=== PATIENT | female | born 1940 | race African-American/Black ===

== ENCOUNTER 2019-11-18 06:43 | Inpatient (IN) | payer MEDICARE, OTHER ==
[~2019-11-18] VITALS: Ht 160 cm; Wt 66.2 kg
[2019-11-18 06:30] VITALS: BP 171/82
[~2019-11-18 06:43] MED LIST: CARV25TA2 PO; CLON1PAT TD; CLON1PAT6 TD; DILT120C99 PO; FAMO20TA5 PO; FOLI0.8T3 PO; FURO20TA3 PO; HYDR-2761 PO; HYDR100T24 PO; INSU100C4 SQ; INSU100I13 SQ; INSU100V6 SQ; LABE200T4 PO; LOSA100T14 PO; METO5TAB55 PO; NIFE30TA2 PO; PANT40TA6 PO; PENT400T7 PO; SPIR25TA5 PO; TIMO5DRO31 EACHEYE
[2019-11-18] MEDS ORDERED: INSULIN REGULAR 100 UNIT/ML 3ML VIAL. SQ SCH (11:30)
[2019-11-18 11:59] VITALS: BP 168/77
[2019-11-18] MEDS: INSULIN LISPRO 300 UNITS/3 ML VIAL. SQ SCH ×2 (12:00→18:13)
--- NOTE | 2019-11-18 12:19 | HP ---
ADMIT DATE: 11/18/2019 HISTORY OF PRESENT ILLNESS: The patient is a 79-year-old female patient who presented to the Emergency Room of [facility] with a complaint of pain in her right neck and arm. She described it as an electrical shock, burning pain and runs down her right arm. The arm numbness started yesterday, but has been more persistent this morning. The patient awoke from sleep with increased symptom of weakness. She has had a history of TIAs before, however, the patient did not have any problem with her right lower extremity. She was able to walk, she was able to talk and eat and drink without difficulty. She was evaluated in the Emergency Room of [facility]. Her lab work was unremarkable. She has had multiple imaging modalities including CT scan of the head and cervical spine without contrast. The CT scan of the head showed mild generalized cerebral and cerebellar volume loss, mild nonspecific periventricular hypoattenuation most commonly seen with chronic small vessel ischemic disease, no intra or extraaxial mass or fluid collection, no acute hemorrhage. The ventricles are normal in size, shape and morphology. The davalos white matter junction is normal. The basilar cisterns are patent. The visualized paranasal sinuses are normal. The visualized portion of the orbits and globes are normal. The mastoid air cells are clear. No aggressive osseous lesions or fracture. Her cervical spine CT scan showed moderate multilevel degenerative disk disease, disk space height loss, multilevel spinal canal stenosis secondary to disk protrusions and marginal osteophytes, worse at ____ C5, C4 where a right paracentral protrusion resulting at least moderate spinal canal stenosis multilevel, and moderate neural foraminal narrowing secondary to uncovertebral arthrosis. She has multilevel mild facet arthrosis, thyroid gland is normal, no cervical lymphadenopathy, bilateral carotid atherosclerosis. The visualized airway digestive tract is normal. The visualized portion of the lungs are clear. The patient's chest x-ray showed normal lung volumes, no pulmonary masses or consolidation. The tracheobronchial tree and hilar structures are normal, no pleural effusion or pneumothorax. The cardiomediastinal silhouette is normal. The great vessels of thorax are normal. X-ray of the abdomen showed nonobstructive bowel gas pattern, no free air, evidence of cholecystectomy and moderate colonic stool burden. The patient was transferred to [facility] for further evaluation and to consult the neurologist, neurosurgeon as well as hoop machine operator as she is on peritoneal dialysis 5 out of 7 days. PAST MEDICAL HISTORY: Significant for longstanding type 2 diabetes with multiple complications, hypertension, hyperlipidemia, end-stage renal disease, on peritoneal dialysis. She has transient ischemic attacks and sarcoidosis. PAST SURGICAL HISTORY: Significant for bilateral cataract extraction. She is also known to have senile macular degeneration. She has had cholecystectomy, right shoulder rotator cuff repair and left middle finger fracture, status post open reduction and internal fixation. She did have also total abdominal hysterectomy and bilateral salpingo-oophorectomy. ALLERGIES: She has no known drug allergies. FAMILY HISTORY: She has 2 brothers and 1 sister, all younger and . Her older brother of hypertension, end-stage renal disease. Her sister of what seems to be status epilepticus and her baby brother at age of 22 because of obscure cancer. Her mother at the age of 25 and father at the age of 23 and both had sarcoidosis. SOCIAL HISTORY: She is and has 7 daughters and 3 sons. She does not smoke, drink alcohol or use recreational drugs. MEDICATIONS: She is currently on the following medications: She is on pentoxifylline 400 mg 3 times a day, clonidine TTS 2 patch applied transdermally once a week, hydralazine 100 mg 3 times a day, nifedipine 30 mg once a day, losartan potassium 100 mg at bedtime, hydrocodone/APAP 1 tablet every 4 hours, furosemide 20 mg daily, timolol maleate 1 drop to both eyes twice a day, Protonix 40 mg daily. She is on Lantus insulin 8 units at bedtime. She is on Humalog insulin 6 units 3 times a day before meals. She is on Nephro-Cash 1 tablet once a day. PHYSICAL EXAMINATION: GENERAL: On arrival to the Emergency Room of [facility], she looked well and was clearly in no apparent respiratory distress, pale, but no jaundice, cyanosis or thyromegaly. No jugular venous distension. No lower limb edema. VITAL SIGNS: Her heart rate was 111, blood pressure was 170/80, temperature 98.1, respiratory rate 26 and oxygen saturation was 97%. HEAD, EYES, EARS, NOSE AND THROAT: Normocephalic, atraumatic. NECK: Supple. HEART: Showed normal first and second heart sounds. No gallop or murmur. CHEST: Clear to auscultation. No crepitation or rhonchi. ABDOMEN: Distended, soft, nontender. NEUROLOGIC: She was alert, oriented x 3, moves all extremities on request. Reports burning and numbness like feeling and pain in her right arm. No focal deficit noted. The reflexes are all symmetrical. Phosphoric Acid Operator are equal. No drift, but does complain that her right arm seems to be weaker. LABORATORY DATA: Her EKG showed that she was in sinus tachycardia with a heart rate of 112 beats per minute. There is some bimodal P waves and some nonspecific changes, but no finding of acute STEMI. Her chest x-ray was unremarkable. The CT scan of the head was unremarkable with no acute intracranial process. CT scan of the cervical spine showed that there is multilevel spinal canal stenosis secondary to disk protrusion and marginal osteophytes, worse at ____ C5, C6 where a right paracentral protrusion resulting in at least moderate spinal canal stenosis. Her lab work showed a white cell count of 7800, hemoglobin 12, hematocrit 36, MCV 90 and platelet count 348,000. Her chemistry showed serum sodium of 132, potassium 4.1, chloride 98, bicarbonate 21, anion gap of 13, BUN 36, creatinine 6.4, estimated GFR was 7.6, glucose was 197, calcium was 8.4, magnesium was 1.7. Total bilirubin, AST, ALT, alkaline phosphatase were normal. CK was 97. First set troponin was 0.028. Total protein was 7.1, albumin 2.3 and lipase was 78. Her blood gases showed a pH of 7.46, pCO2 of 26, pO2 of 102, bicarbonate was 19 and oxygen saturation was 98% on FiO2 of 21%. Her prothrombin time, INR and aPTT are normal. D-dimer was slightly elevated to 1.61. Her urinalysis was essentially unremarkable. ASSESSMENT AND PLAN: In summary, this is a 79-year-old female patient who presented with right arm pain that she describes as burning sensation. She also describes generalized weakness of the right arm, although she denied any weakness of the right lower extremity. She has no aphasia or dysphagia. CT scan of the cervical spine showed perhaps right-sided C4-C5 ____ neural foraminal stenosis and perhaps right-sided radiculopathy. My plan is to consult the neurologist. She probably will require an MRI to explore this area further, might eventually require a neurosurgical consult. Meanwhile, we will reconcile all her medication and consult Dr. Price to continue her peritoneal dialysis. LADONNA REZA MD DR: ROBERT/andrew JOB#: [id number] / [id number]
[2019-11-18] MEDS: PENTOXIFYLLINE ER 400 MG TABLET.ER. PO SCH ×3 (12:42→20:53)
[2019-11-18] MEDS: FOLIC/VIT B COMP W-C (RENAL) TABLET. PO SCH (12:42)
[2019-11-18] MEDS: amLODIPine BESYLATE 5 MG TABLET PO SCH (12:43)
[2019-11-18] MEDS: TIMOLOL 0.5% OPHTH SOLUTION 5ML BOTTLE. OU SCH ×2 (12:46→21:00)
--- NOTE | 2019-11-18 13:05 | PDOC2 ---
CONSULT Date of Consult Date of Consult DATE: 11/18/19 TIME: 12:53 Reason for Consult Reason for Consult: ESRD on PD Source Source: Chart review History of Present Illness Reason for Visit: Pt is a 79-year-old AAF ESRD on PD ,presented to [facility] ER with c/o pain in her right neck and arm. She described it as an electrical shock, burning pain and runs down her right arm. She was transferred to [facility] for further eval. Currently propped up in bed with eyes closed . Family at bedside. Denies any N/V . No abdominal pain Still does PD 5 times/week per Dr. Price's recommendations Past Medical History Cardiovascular: HTN, Hyperlipidemia Pulmonary: Other CENTRAL NERVOUS SYSTEM: CVA, TIA GI: GERD Heme/Onc: Anemia NOS Musculoskeletal: Osteoarthritis Renal/: Chronic renal failure Endocrine: Diabetes Past Surgical History Past Surgical History: Cholecystectomy, Cataract Removal, Hysterectomy, Other Family History Family History: Diabetes, Hypertension Social History ALCOHOL: none Drugs: None Lives: with Family Current Medications Current Medications Current Medications Vitamin B Complex/ Vitamin C (Di-Cash) 1 tab DAILY PO Last administered on 11/18/19at 12:42; Start 11/18/19 at 10:00 Insulin Human Regular (HumuLIN R VIAL) 6 unit TIDAC SQ ; Start 11/18/19 at 11:30; Status Cancel Pentoxifylline (TRENtal) 400 mg TID PO Last administered on 11/18/19at 12:42; Start 11/18/19 at 10:00 Hydralazine HCl (Apresoline) 100 mg TID PO Last administered on 11/18/19at 12:45; Start 11/18/19 at 10:00 Insulin Glargine (Lantus Syringe) 8 unit QHS SQ ; Start 11/18/19 at 21:00 Losartan Potassium (Cozaar) 100 mg QHS PO ; Start 11/18/19 at 21:00 Timolol Maleate (Timoptic 0.5% [facility]) 1 drop BID OU Last administered on 11/18/19at 12:46; Start 11/18/19 at 10:00 Clonidine HCl (Catapres Tts-3) 1 patch WEEKLY TD ; Start 11/25/19 at 09:00 Amlodipine Besylate (Norvasc) 5 mg DAILY PO Last administered on 11/18/19at 12:43; Start 11/18/19 at 10:00 Insulin Human Lispro (HumaLOG) 6 units TIDWMEALS SQ ; Start 11/18/19 at 12:00 Active Scripts Active Losartan Potassium 100 Mg Tablet 100 Mg PO AT BED TIME 30 Days Procardia Xl (Nifedipine) 30 Mg Tab.er.24 1 Tab PO BID 30 Days Lantus Solostar (Insulin Glargine,Hum.rec.anlog) 100 Unit/1 Ml Insuln.pen 8 Unit SQ QHS 30 Days Humalog (Insulin Lispro) 100 Unit/1 Ml Vial 6 Unit SQ TIDAC 30 Days Hydralazine Hcl 100 Mg Tablet 1 Tab PO TID Hydrocodone-Apap 5-325 (Hydrocodone Bit/Acetaminophen) 1 Tab Tablet 1 Tab PO PRN Q4HRS PRN Reported Clonidine Tts-2 (Clonidine) 1 Each Patch.tdwk 1 Patch TD WEEKLY Furosemide 20 Mg Tablet 20 Mg PO DAILY Timolol Maleate 5 Ml Drop.daily 1 Drop EACHEYE BID PRN 30 Days Pentoxifylline 400 Mg Tablet.er 400 Mg PO TID Pantoprazole Sodium 40 Mg Tablet.dr 40 Mg PO DAILY08 PRN Nephro-Cash Tablet (Folic Acid/Vitamin B Comp W-C) 0.8 Mg Tablet 1 Tab PO DAILY Allergies Allergies: Coded Allergies: No Known Drug Allergies (Unverified , 03/29/19) ROS Review of System Per HPI Physical Exam Physical Exam GENERAL:NAD , propped up in bed with eyes close d HEEN-OM moist NECK: Supple. CV: RRR LUNGS : Clear to auscultation, Non labored ABDOMEN: soft, peritoneal dialysis catheter in place- no tenderness NEURO- A XO No paz SKIN No Rash Vital Signs Vital Signs Date Time Temp Pulse Resp B/P (MAP) Pulse Ox O2 Delivery O2 Flow Rate FiO2 11/18/19 12:45 84 171/82 11/18/19 11:59 98.1 16 99 Room Air 98.1 Assessment & Plan ESRD -On PD switched from HD earlier this year Does PD 5 days /week -not on Tue and Tuesday as recommended by Dr. Price No LBF , On cycler at night.Continue with Home prescription , Octavio Callahan HTN- has been hospitalized in past 2/2 HTNsive urgency BP high -resume home meds Renal Doppler in Apr 2019 - No evidence of renal artery stenosis DM-per primary Anemia-- Monitor, if below goal will start ANGELO Generalized weakness of the right arm /Numbness CT cervical spine neural foraminal stenosis and perhaps right-sided radiculopathy. Neurology consulted Labs Review All relevant outside records, renal labs, imaging studies, telemetry/EKG's were reviewed. JAYLEEN LANDERS MD Nov 18, 2019 13:05
[2019-11-18 15:59] VITALS: BP 172/79
[2019-11-18 19:00] VITALS: BP 163/74
--- NOTE | 2019-11-18 20:01 | PDOC2 ---
CONSULT Date of Consult Date of Consult DATE: 11/18/19 TIME: 19:57 Reason for Consult Reason for Consult: Right arm. Pain Identification/Chief Complaint Chief Complaint Right arm. Pain History of Present Illness Reason for Visit: This patient is 79-year-old woman information obtained from patient, patient's family at bedside. She reports she was not feeling well for the last sru-dy-govod weeks. Patient was having some neck discomfort associated with right arm pain, weakness. Patient denies any difficulty speaking tingling numbness on the face. Patient denies any complaint of headache nausea or vomiting chest pain shortness of breath. Patient reports she has improvement in symptoms. Past Medical History Cardiovascular: HTN, Hyperlipidemia Pulmonary: Other CENTRAL NERVOUS SYSTEM: CVA, TIA GI: GERD Heme/Onc: Anemia NOS Musculoskeletal: Osteoarthritis Renal/: Chronic renal failure Endocrine: Diabetes Past Surgical History Past Surgical History: Cholecystectomy, Cataract Removal, Hysterectomy, Other Family History Family History: Diabetes, Hypertension Social History ALCOHOL: none Drugs: None Lives: with Family Current Medications Current Medications Current Medications Vitamin B Complex/ Vitamin C (Di-Cash) 1 tab DAILY PO Last administered on 11/18/19at 12:42; Start 11/18/19 at 10:00 Insulin Human Regular (HumuLIN R VIAL) 6 unit TIDAC SQ ; Start 11/18/19 at 11:30; Status Cancel Pentoxifylline (TRENtal) 400 mg TID PO Last administered on 11/18/19at 12:42; Start 11/18/19 at 10:00 Hydralazine HCl (Apresoline) 100 mg TID PO Last administered on 11/18/19at 12:45; Start 11/18/19 at 10:00 Insulin Glargine (Lantus Syringe) 8 unit QHS SQ ; Start 11/18/19 at 21:00 Losartan Potassium (Cozaar) 100 mg QHS PO ; Start 11/18/19 at 21:00 Timolol Maleate (Timoptic 0.5% [facility]) 1 drop BID OU Last administered on 11/18/19at 12:46; Start 11/18/19 at 10:00 Clonidine HCl (Catapres Tts-3) 1 patch WEEKLY TD ; Start 11/25/19 at 09:00 Amlodipine Besylate (Norvasc) 5 mg DAILY PO Last administered on 11/18/19at 12:43; Start 11/18/19 at 10:00 Insulin Human Lispro (HumaLOG) 6 units TIDWMEALS SQ Last administered on 11/18/19at 18:13; Start 11/18/19 at 12:00 Active Scripts Active Losartan Potassium 100 Mg Tablet 100 Mg PO AT BED TIME 30 Days Procardia Xl (Nifedipine) 30 Mg Tab.er.24 1 Tab PO BID 30 Days Lantus Solostar (Insulin Glargine,Hum.rec.anlog) 100 Unit/1 Ml Insuln.pen 8 Unit SQ QHS 30 Days Humalog (Insulin Lispro) 100 Unit/1 Ml Vial 6 Unit SQ TIDAC 30 Days Hydralazine Hcl 100 Mg Tablet 1 Tab PO TID Hydrocodone-Apap 5-325 (Hydrocodone Bit/Acetaminophen) 1 Tab Tablet 1 Tab PO PRN Q4HRS PRN Reported Clonidine Tts-2 (Clonidine) 1 Each Patch.tdwk 1 Patch TD WEEKLY Furosemide 20 Mg Tablet 20 Mg PO DAILY Timolol Maleate 5 Ml Drop.daily 1 Drop EACHEYE BID PRN 30 Days Pentoxifylline 400 Mg Tablet.er 400 Mg PO TID Pantoprazole Sodium 40 Mg Tablet.dr 40 Mg PO DAILY08 PRN Nephro-Cash Tablet (Folic Acid/Vitamin B Comp W-C) 0.8 Mg Tablet 1 Tab PO DAILY Allergies Allergies: Coded Allergies: No Known Drug Allergies (Unverified , 03/29/19) Physical Exam Physical Exam General no acute distress. HEENT: Normocephalic and atraumatic. NECK: Supple without bruit Respiratory: Clear to auscultation bilaterally Heart: Regular rate and rhythm, S1S2 normal NEUROLOGIC: Mental status Alert oriented. Cranial nerve equally reactive pupils, and intact extraocular movements. No facial asymmetry. Palate elevates and tongue protrudes in midline. Reflexes are 1-2 with flexor plantar responses. Coordination no dysmetria Strength able to move all exts equally except right arm limited by pain. Sensory exam is intact for light touch and pinprick Decreased to light touch pinprick on right compared to left. Gait in bed. Vitals VITALS Vital Signs Date Time Temp Pulse Resp B/P (MAP) Pulse Ox O2 Delivery O2 Flow Rate FiO2 11/18/19 15:59 98.2 73 18 172/79 (110) 97 Room Air 98.2 Assessment/Plan Assessment/Plan This patient is 79-year-old woman information obtained from patient, patient's family at bedside. She reports she was not feeling well for the last vyx-te-opbml weeks. Patient was having some neck discomfort associated with right arm pain, weakness. Patient denies any difficulty speaking tingling nu mbness on the face. Patient denies any complaint of headache nausea or vomiting chest pain shortness of breath. Patient reports she has improvement in symptoms. 79-year-old woman who presented with complaint of neck pain, right arm pain weakness. Patient also has a previous history of CVA. Patient was started on aspirin for stroke prevention. Patient had a CT scan done brain at outside facility did not show any evidence of acute intracranial etiology no evidence of acute hemorrhage or mass. Patient had a CT cervical spine did not show any evidence of cervical fracture multilevel disc disease noted. Will get MRI of brain, cervical spine to evaluate for any acute treatable etiology. Further workup depending on initial test result. Continue medical management plan discussed with patient, patient's family at bedside at length QUINTON MERIDA MD Nov 18, 2019 20:01
[2019-11-18] MEDS: LOSARTAN POTASSIUM 50 MG TABLET. PO SCH (20:53)
[2019-11-18] MEDS: INSULIN GLARGINE SYRINGE. SQ SCH (20:55)
[2019-11-18 23:00] VITALS: BP 160/80
[2019-11-19 03:00] VITALS: BP 168/74
[2019-11-19 07:15] VITALS: BP 142/76
[2019-11-19] MEDS: INSULIN LISPRO 300 UNITS/3 ML VIAL. SQ SCH ×3 (08:00→18:04)
[2019-11-19] MEDS: TIMOLOL 0.5% OPHTH SOLUTION 5ML BOTTLE. OU SCH ×2 (08:57→20:51)
[2019-11-19] MEDS: PENTOXIFYLLINE ER 400 MG TABLET.ER. PO SCH ×3 (08:57→20:53)
[2019-11-19] MEDS: amLODIPine BESYLATE 5 MG TABLET PO SCH ×2 (08:57→09:00)
[2019-11-19] MEDS: FOLIC/VIT B COMP W-C (RENAL) TABLET. PO SCH (08:57)
--- NOTE | 2019-11-19 10:00 | PDOC ---
PROGRESS NOTES Assessment Neck pain with right arm pain, weakness, numbness, Suspect cervical r adiculopathy, cerebral vascular disease is much less likely, right carotid or vertebral dissection should not cause ipsilateral symptoms. Moderate multilevel degenerative disc space height loss. Multilevel spinal canal stenosis secondary to disc protrusions and marginal osteophytes, worst at C5-6 where a right paracentral protrusion results in at least moderate spinal canal stenosis. Multilevel mild and moderate neuroforaminal narrowing secondary to uncovertebral arthrosis. Multilevel mild facet arthrosis. History of transient ischemic attacks Type 2 diabetes, hypertension, hyperlipidemia, end-stage renal disease on peritoneal dialysis, sarcoidosis. Plan Awaiting MRI of brain and cervical spine, further studies depending on these results Subjective No numbness currently, does have some neck pain Objective Vital Signs Date Time Temp Pulse Resp B/P (MAP) Pulse Ox O2 Delivery O2 Flow Rate FiO2 11/19/19 08:57 82 142/76 11/19/19 07:15 97.8 16 94 Room Air 97.8 Intake and Output 11/19/19 07:00 Intake Total 50 ml Balance 50 ml Intake Oral 50 ml PHYSICAL EXAM Alert. Oriented to time, place and person. PERRL. EOMI. CN: no focal findings. Muscle tone: normal. Muscle strength:5/5 DTR: 1+ Plantar reflex: flexor Gait: not examined in bed. Sensory exam: no abnormal findings. No cerebellar signs elicited. Review of Relevant I have reviewed the following items servando (where applicable) has been applied. Labs Laboratory Tests Test 11/18/19 07:56 11/18/19 12:13 11/18/19 14:30 11/18/19 17:55 Glucose (Fingerstick) 176 mg/dL (70-99) 181 mg/dL (70-99) 253 mg/dL (70-99) Coronavirus (COVID-19)(PCR) Negative (NEGATIVE) Test 11/18/19 20:45 11/19/19 07:48 Glucose (Fingerstick) 152 mg/dL (70-99) 112 mg/dL (70-99) Laboratory Tests Test 11/18/19 12:13 11/18/19 14:30 11/18/19 17:55 11/18/19 20:45 Glucose (Fingerstick) 181 mg/dL (70-99) 253 mg/dL (70-99) 152 mg/dL (70-99) Coronavirus (COVID-19)(PCR) Negative (NEGATIVE) Test 11/19/19 07:48 Glucose (Fingerstick) 112 mg/dL (70-99) Medications Current Medications Vitamin B Complex/ Vitamin C (Di-Cash) 1 tab DAILY PO Last administered on 11/19/19 08:57; Start 11/18/19 at 10:00 Insulin Human Regular (HumuLIN R VIAL) 6 unit TIDAC SQ ; Start 11/18/19 at 11:30; Status Cancel Pentoxifylline (TRENtal) 400 mg TID PO Last administered on 11/19/19 08:57; Start 11/18/19 at 10:00 Hydralazine HCl (Apresoline) 100 mg TID PO Last administered on 11/19/19 08:57; Start 11/18/19 at 10:00 Insulin Glargine (Lantus Syringe) 8 unit QHS SQ Last administered on 11/18/19 20:55; Start 11/18/19 at 21:00 Losartan Potassium (Cozaar) 100 mg QHS PO Last administered on 11/18/19 20:53; Start 11/18/19 at 21:00 Timolol Maleate (Timoptic 0.5% [facility]) 1 drop BID OU Last administered on 11/19/19 08:57; Start 11/18/19 at 10:00 Clonidine HCl (Catapres Tts-3) 1 patch WEEKLY TD ; Start 11/25/19 at 09:00 Amlodipine Besylate (Norvasc) 5 mg DAILY PO Last administered on 11/18/19 12:43; Start 11/18/19 at 10:00 Insulin Human Lispro (HumaLOG) 6 units TIDWMEALS SQ Last administered on 11/18/19 18:13; Start 11/18/19 at 12:00 Active Scripts Active Losartan Potassium 100 Mg Tablet 100 Mg PO AT BED TIME 30 Days Procardia Xl (Nifedipine) 30 Mg Tab.er.24 1 Tab PO BID 30 Days Lantus Solostar (Insulin Glargine,Hum.rec.anlog) 100 Unit/1 Ml Insuln.pen 8 Unit SQ QHS 30 Days Humalog (Insulin Lispro) 100 Unit/1 Ml Vial 6 Unit SQ TIDAC 30 Days Hydralazine Hcl 100 Mg Tablet 1 Tab PO TID Hydrocodone-Apap 5-325 (Hydrocodone Bit/Acetaminophen) 1 Tab Tablet 1 Tab PO PRN Q4HRS PRN Reported Clonidine Tts-2 (Clonidine) 1 Each Patch.tdwk 1 Patch TD WEEKLY Furosemide 20 Mg Tablet 20 Mg PO DAILY Timolol Maleate 5 Ml Drop.daily 1 Drop EACHEYE BID PRN 30 Days Pentoxifylline 400 Mg Tablet.er 400 Mg PO TID Pantoprazole Sodium 40 Mg Tablet.dr 40 Mg PO DAILY08 PRN Nephro-Cash Tablet (Folic Acid/Vitamin B Comp W-C) 0.8 Mg Tablet 1 Tab PO DAILY Vitals/I & O Vital Sign - Last 24 Hours 11/18/19 11/18/19 11/18/19 11/18/19 11:59 12:43 12:45 15:59 Temp 98.1 98.2 98.1 98.2 Pulse 79 84 84 73 Resp 16 18 B/P (MAP) 168/77 (107) 171/82 171/82 172/79 (110) Pulse Ox 99 97 O2 Delivery Room Air Room Air 11/18/19 11/18/19 11/18/19 11/18/19 19:00 20:00 20:53 20:54 Temp 98.4 98.4 Pulse 68 73 73 Resp 18 B/P (MAP) 163/74 (103) 172/79 172/79 Pulse Ox 98 O2 Delivery Room Air Room Air 11/18/19 11/19/19 11/19/19 11/19/19 23:00 03:00 07:15 08:57 Temp 97.9 98.5 97.8 97.9 98.5 97.8 Pulse 61 69 82 82 Resp 18 18 16 B/P (MAP) 160/80 (106) 168/74 (105) 142/76 (98) 142/76 Pulse Ox 98 98 94 O2 Delivery Room Air Room Air Room Air Intake and Output 11/18/19 11/18/19 11/19/19 15:00 23:00 07:00 Intake Total 50 ml Balance [address] HEAD AND CERVICAL SPINE WO Date: 11/18/2019 1:55 AM , [facility]: 5 mm axial tomographic images were obtained of the head without contrast. These were viewed on brain and bone windows. Noncontrast CT of the cervical spine was performed. Sagittal and coronal reformats were performed and evaluated. One or more of the following dose reduction techniques were utilized: Automated exposure control (AEC), Adjustment of mA and/or kV according to patient size, Use of iterative reconstruction technique such as ASiR, CT scan done according to ALARA and image gently/image wisely HEAD FINDINGS: Mild generalized cerebral and cerebellar volume loss. Mild nonspecific periventricular hypoattenuation, most commonly seen with chronic small vessel ischemic disease. No intra- or extra-axial mass or fluid collection. No acute hemorrhage. The ventricles are normal in size, shape, and morphology. The davalos-white matter junction is normal. The basilar cisterns are patent. The visualized paranasal sinuses are normal. The visualized portions of the orbits and globes are normal. The mastoid air cells are clear. No aggressive osseous lesion or fracture. CERVICAL SPINE FINDINGS: The cervical spine is normally aligned. No acute fracture. No aggressive lytic or blastic osseous lesions. Moderate multilevel degenerative disc space height loss. Multilevel spinal canal stenosis secondary to disc protrusions and marginal osteophytes, worst at C5-6 where a right paracentral protrusion results in at least moderate spinal canal stenosis. Multilevel mild and moderate neuroforaminal narrowing secondary to uncovertebral arthrosis. Multilevel mild facet arthrosis. The thyroid gland is normal. No cervical lymphadenopathy. Bilateral carotid atherosclerosis. The visualized aerodigestive tract is normal. The visualized portions of the lungs are clear. IMPRESSION: 1. No acute intracranial process. 2. No acute cervical spine fracture. Justicifation of Admission Dx: Justifications for Admission: Justification of Admission Dx: N/A BISHNU HUTCHINSON MD Nov 19, 2019 10:00
[2019-11-19 11:00] VITALS: BP 175/79
--- NOTE | 2019-11-19 12:20 | NUR ---
SW following. Discussed with RN, pt from home with , gets around fine. Pt does PD. Pt having an MRI today. SW will continue to follow for any discharge planning needs.
--- NOTE | 2019-11-19 12:31 | RAD ---
EXAMINATION: Magnetic resonance imaging (MRI) of the brain and brainstem without contrast 11/19/2019 5:00 AM HISTORY: Right arm numbness and pain TECHNIQUE: Multiplanar multi-weighted MRI of the brain and brainstem was performed without intravenous contrast using the general brain protocol. COMPARISON: CT head 04/18/2019 FINDINGS: The scalp and calvarium are normal. The superior sagittal sinus demonstrates normal venous flow. The corpus callosum is normal in shape and signal intensity. The posterior fossa is unremarkable. The pituitary and sella are normal. The brainstem and craniocervical junction are unremarkable. There are T2/FLAIR signal hyperintense foci in the periventricular and subcortical white matter most suggestive of mild chronic small vessel ischemic changes. Diffusion weighted images reveal no hyperintensities to suggest acute cerebral infarction. The susceptibility weighted sequences reveal no evidence of acute or chronic hemorrhage. The ventricles are normal in size and position without evidence of hydrocephalus. The paranasal sinuses are normal. Right mastoid effusion is noted. There may be fluid in the right middle The orbits appear normal exception of bilateral lens replacement. Normal flow voids are demonstrated in the carotid arteries and basilar artery. IMPRESSION: 1. No evidence for acute or subacute ischemia. 2. There are T2/FLAIR signal hyperintense foci in the periventricular and subcortical white matter most suggestive of mild chronic small vessel ischemic changes.. 3. Right mastoid effusion with fluid in the right middle ear cavity. Otomastoiditis is a consideration. Electronically signed by: Karissa Alejandro MD (11/19/2019 12:28 PM) [facility]
--- NOTE | 2019-11-19 12:37 | RAD ---
EXAMINATION: Magnetic resonance imaging (MRI) of the cervical spine without contrast 11/19/2019 5:00 AM HISTORY: Right arm numbness, pain TECHNIQUE: Multiplanar multi-weighted MRI of the cervical spine was performed without intravenous contrast using the standard cervical spine protocol. Contrast information: None administered COMPARISON: None available. FINDINGS: There is minimal retrolisthesis of C4 on C5. Vertebral body heights are maintained. Mild low T1 signal intensity is identified throughout the cervical spine which is nonspecific and could be secondary to chronic smoking or anemia. There is mild disc height loss at C4-C5, C5-C6 and C6-C7. Moderate intramarginal osteophytosis is present. No significant prevertebral edema. Cervical spinal cord signal intensity is normal in all sequences. Posterior fossa is normal in appearance. Vertebral artery flow voids are maintained. Sella is normal. Skull base is intact. No significant abnormality of the atlantoaxial articulation. There is congenital narrowing of the spinal canal secondary to shortened pedicles. C2-C3: Mild disc bulge. No significant facet arthropathy or uncovertebral joint disease. No neuroforaminal or spinal canal stenosis. C3-C4: There is mild disc bulge. No significant facet arthropathy. No uncovertebral joint disease. Mild right neuroforaminal stenosis. No spinal canal stenosis. C4-C5: There is a posterior disc osteophyte complex with central disc extrusion. There is mild facet arthropathy and uncovertebral joint disease. Moderate to severe left and mild right neuroforaminal stenosis. Moderate to severe spinal canal stenosis without definite cord signal alteration. Findings are exacerbated by ligamentum flavum infolding and congenital narrowing of the spinal canal. C5-C6: There is a posterior disc osteophyte complex with right central disc extrusion. Mild facet and moderate right uncovertebral joint disease. Moderate right and mild left neuroforaminal stenosis. Moderate to severe spinal canal stenosis, exacerbated by ligamentum flavum infolding and congenital narrowing of the spinal canal. No definite cord signal alteration is visualized. C6-C7: There is a posterior disc osteophyte complex with left central disc protrusion. No significant facet arthropathy. Moderate left and mild right uncovertebral joint disease. Moderate left and mild right neuroforaminal stenosis. Mild to moderate spinal canal stenosis with mild deformity of the cord. No cord signal alteration. C7-T1: Disc is normal in configuration. No neuroforaminal or spinal canal stenosis. IMPRESSION: Moderate to advanced degenerative changes of the cervical spine are present, most prominent at C4-C5, C5-C6 and described in detail above. Electronically signed by: Karissa Alejandro MD (11/19/2019 12:34 PM) [facility]
[2019-11-19 15:00] VITALS: BP 150/68
[2019-11-19 19:00] VITALS: BP 161/80
[2019-11-19] MEDS: LOSARTAN POTASSIUM 50 MG TABLET. PO SCH (20:52)
[2019-11-19] MEDS: INSULIN GLARGINE SYRINGE. SQ SCH (20:53)
--- NOTE | 2019-11-19 22:09 | PDOC ---
SUBJECTIVE ROS Stable, MRI today No issues with PD OBJECTIVE Vital Signs Vital Signs Date Time Temp Pulse Resp B/P (MAP) Pulse Ox O2 Delivery O2 Flow Rate FiO2 11/19/19 20:52 71 160/81 11/19/19 19:00 98.2 16 97 Room Air 98.2 I & 0 Intake and Output 11/19/19 07:00 Intake Total 50 ml Balance 50 ml Intake Oral 50 ml PHYSICAL EXAM Physical Exam GENERAL:NAD HEEN-OM moist NECK: Supple. CV: RRR LUNGS : Clear to auscultation, Non labored ABDOMEN: soft, peritoneal dialysis catheter in place- no tenderness NEURO- A XO No paz SKIN No Rash DIAGNOSIS/ASSESSMENT Assessment & Plan ESRD -On PD switched from HD earlier this year Does PD 5 days /week -not on Tue and Tuesday as recommended by Dr. Price No LBF , On cycler at night.Continue with Home prescription , Octavio Callahan HTN- has been hospitalized in past 2/2 HTNsive urgency BP high -resume home meds Renal Doppler in Apr 2019 - No evidence of renal artery stenosis DM-per primary Anemia-- Monitor, if below goal will start ANGELO Generalized weakness of the right arm /Numbness CT cervical spine neural foraminal stenosis and perhaps right-sided radiculopathy. Neurology consulted COMMENT/RELEVANT DATA Meds Current Medications Medications (Trade) Dose Ordered Sig/Aniceto Start Time Stop Time Status Last Admin Dose Admin Amlodipine Besylate (Norvasc) 5 mg DAILY 11/18/19 10:00 11/18/19 12:43 5 MG Clonidine HCl (Catapres Tts-3) 1 patch WEEKLY 11/25/19 09:00 Hydralazine HCl (Apresoline) 100 mg TID 11/18/19 10:00 11/19/19 20:52 100 MG Insulin Glargine (Lantus Syringe) 8 unit QHS 11/18/19 21:00 11/19/19 20:53 8 UNIT Insulin Human Lispro (HumaLOG) 6 units TIDWMEALS 11/18/19 12:00 11/19/19 18:04 6 UNITS Insulin Human Regular (HumuLIN R VIAL) 6 unit TIDAC 11/18/19 11:30 Cancel Losartan Potassium (Cozaar) 100 mg QHS 11/18/19 21:00 7/6/20 20:52 100 MG Pentoxifylline (TRENtal) 400 mg TID 11/18/19 10:00 11/19/19 20:53 400 MG Timolol Maleate (Timoptic 0.5% Oph) 1 drop BID 11/18/19 10:00 11/19/19 20:51 1 DROP Vitamin B Complex/ Vitamin C (Di-Cash) 1 tab DAILY 11/18/19 10:00 11/19/19 08:57 1 TAB Lab Laboratory Tests Test 11/19/19 07:48 11/19/19 11:49 11/19/19 16:38 11/19/19 20:40 Glucose (Fingerstick) 112 mg/dL (70-99) 123 mg/dL (70-99) 274 mg/dL (70-99) 173 mg/dL (70-99) Results All relevant outside records, renal labs, imaging studies, telemetry/EKG's were reviewed. Justicifation of Admission Dx: Justifications for Admission: Justification of Admission Dx: N/A JAYLEEN LANDERS MD Nov 19, 2019 22:09
[2019-11-19 23:00] VITALS: BP 183/89
[2019-11-20 03:00] VITALS: BP 190/86
[2019-11-20] MEDS: amLODIPine BESYLATE 5 MG TABLET PO SCH (03:05)
[2019-11-20 04:00] VITALS: BP 185/93
[2019-11-20 05:51] VITALS: BP 162/80
--- NOTE | 2019-11-20 05:53 | NUR ---
Patient awake most of noc. BP 162/80 currently. Patient states she didn't take the Apresoline on 11/19/[address] dr has discontinued it because of "swelling." I gave it at 0300. Peritoneal dialysis is complete per the machine. Bag contents look clear w/ slight yellow tinge.
[2019-11-20 07:00] VITALS: BP 201/81
[2019-11-20] MEDS: INSULIN LISPRO 300 UNITS/3 ML VIAL. SQ SCH ×2 (08:00→11:12)
[2019-11-20] MEDS: PENTOXIFYLLINE ER 400 MG TABLET.ER. PO SCH (08:15)
[2019-11-20] MEDS: FOLIC/VIT B COMP W-C (RENAL) TABLET. PO SCH (08:16)
[2019-11-20] MEDS: TIMOLOL 0.5% OPHTH SOLUTION 5ML BOTTLE. OU SCH (08:16)
[2019-11-20] MEDS ORDERED: cloNIDine TTS-3 1 PATCH PATCH.TDWK TD SCH (10:00)
[2019-11-20] MEDS ORDERED: cloNIDine TTS-1 1 PATCH PATCH.TDWK TD SCH ×2 (10:00)
--- NOTE | 2019-11-20 10:21 | PDOC ---
PROGRESS NOTES Assessment Moderate to advanced degenerative changes of the cervical spine, C4-C5, C5-C6, cervical radiculopathy No stroke Possible right otomastoiditis History of transient ischemic attacks Type 2 diabetes, hypertension, hyperlipidemia, end-stage renal disease on peritoneal dialysis, sarcoidosis. Plan Conservative therapy for the cervical disease, physical therapy as outpatient. Escalate to epidural injections in the neurosurgery if no better I consulted Dr. Mcgill, ENT, regarding the possible otomastoiditis, she usually does not come into the hospital, patient will need outpatient referral Okay for discharge Follow-up with neurology as needed. Subjective Still has some hearing loss in the right ear, right arm numbness is stable Objective Vital Signs Date Time Temp Pulse Resp B/P (MAP) Pulse Ox O2 Delivery O2 Flow Rate FiO2 11/20/19 08:16 78 201/91 11/20/19 08:00 Room Air 11/20/19 07:00 98.1 16 98 98.1 Intake and Output 11/20/19 07:00 Intake Total 160 ml Balance 160 ml Intake Oral 160 ml # Voids 2 # Bowel Movements 1 PHYSICAL EXAM Alert. Oriented to time, place and person. PERRL. EOMI. CN: no focal findings. Muscle tone: normal. Muscle strength:5/5 DTR: 1+ Plantar reflex: flexor Gait: not examined in bed. Sensory exam: no abnormal findings. No cerebellar signs elicited. Review of Relevant I have reviewed the following items servando (where applicable) has been applied. Labs Laboratory Tests Test 11/18/19 12:13 11/18/19 14:30 11/18/19 17:55 11/18/19 20:45 Glucose (Fingerstick) 181 mg/dL (70-99) 253 mg/dL (70-99) 152 mg/dL (70-99) Coronavirus (COVID-19)(PCR) Negative (NEGATIVE) Test 11/19/19 07:48 11/19/19 11:49 11/19/19 16:38 11/19/19 20:40 Glucose (Fingerstick) 112 mg/dL (70-99) 123 mg/dL (70-99) 274 mg/dL (70-99) 173 mg/dL (70-99) Test 11/20/19 07:25 Glucose (Fingerstick) 123 mg/dL (70-99) Laboratory Tests Test 11/19/19 11:49 11/19/19 16:38 11/19/19 20:40 11/20/19 07:25 Glucose (Fingerstick) 123 mg/dL (70-99) 274 mg/dL (70-99) 173 mg/dL (70-99) 123 mg/dL (70-99) Medications Current Medications Vitamin B Complex/ Vitamin C (Di-Cash) 1 tab DAILY PO Last administered on 11/20/19 08:16; Start 11/18/19 at 10:00 Insulin Human Regular (HumuLIN R VIAL) 6 unit TIDAC SQ ; Start 11/18/19 at 11:30; Status Cancel Pentoxifylline (TRENtal) 400 mg TID PO Last administered on 11/20/19 08:15; Start 11/18/19 at 10:00 Hydralazine HCl (Apresoline) 100 mg TID PO Last administered on 11/20/19 08:16; Start 11/18/19 at 10:00 Insulin Glargine (Lantus Syringe) 8 unit QHS SQ Last administered on 11/19/19at 20:53; Start 11/18/19 at 21:00 Losartan Potassium (Cozaar) 100 mg QHS PO Last administered on 11/19/19at 20:52; Start 11/18/19 at 21:00 Timolol Maleate (Timoptic 0.5% Ophth) 1 drop BID OU Last administered on 11/20/19 08:16; Start 11/18/19 at 10:00 Clonidine HCl (Catapres Tts-3) 1 patch WEEKLY TD ; Start 11/25/19 at 09:00; Status Cancel Amlodipine Besylate (Norvasc) 5 mg DAILY PO Last administered on 11/20/19at 03:05; Start 11/18/19 at 10:00 Insulin Human Lispro (HumaLOG) 6 units TIDWMEALS SQ Last administered on 11/19/19at 18:04; Start 11/18/19 at 12:00 Clonidine HCl (Catapres Tts-3) 1 patch WEEKLY TD ; Start 11/20/19 at 10:00 Clonidine HCl (Catapres Tts-1) 1 patch WEEKLY TD ; Start 11/20/19 at 10:00 Clonidine HCl (Catapres Tts-1) 1 patch WEEKLY TD ; Start 11/20/19 at 10:00; Status UNV Active Scripts Active Losartan Potassium 100 Mg Tablet 100 Mg PO AT BED TIME 30 Days Procardia Xl (Nifedipine) 30 Mg Tab.er.24 1 Tab PO BID 30 Days Lantus Solostar (Insulin Glargine,Hum.rec.anlog) 100 Unit/1 Ml Insuln.pen 8 Unit SQ QHS 30 Days Humalog (Insulin Lispro) 100 Unit/1 Ml Vial 6 Unit SQ TIDAC 30 Days Hydralazine Hcl 100 Mg Tablet 1 Tab PO TID Hydrocodone-Apap 5-325 (Hydrocodone Bit/Acetaminophen) 1 Tab Tablet 1 Tab PO PRN Q4HRS PRN Reported Clonidine Tts-2 (Clonidine) 1 Each Patch.tdwk 1 Patch TD WEEKLY Furosemide 20 Mg Tablet 20 Mg PO DAILY Timolol Maleate 5 Ml Drop.daily 1 Drop EACHEYE BID PRN 30 Days Pentoxifylline 400 Mg Tablet.er 400 Mg PO TID Pantoprazole Sodium 40 Mg Tablet.dr 40 Mg PO DAILY08 PRN Nephro-Cash Tablet (Folic Acid/Vitamin B Comp W-C) 0.8 Mg Tablet 1 Tab PO DAILY Vitals/I & O Vital Sign - Last 24 Hours 11/19/19 11/19/19 11/19/19 11/19/19 11:00 13:53 15:00 19:00 Temp 97.9 98.3 98.2 97.9 98.3 98.2 Pulse 68 68 75 71 Resp 16 16 16 B/P (MAP) 175/79 (111) 175/79 150/68 (95) 161/80 (107) Pulse Ox 98 97 97 O2 Delivery Room Air Room Air Room Air 11/19/19 11/19/19 11/19/19 11/20/19 20:52 20:52 23:00 03:00 Temp 98.6 98.0 98.6 98.0 Pulse 71 105 66 Resp 16 16 B/P (MAP) 160/81 160/81 183/89 (120) 190/86 (120) Pulse Ox 99 98 O2 Delivery Room Air Room Air 11/20/19 11/20/19 11/20/19 11/20/19 03:05 04:00 05:51 07:00 Temp 98.1 98.1 Pulse 66 72 76 79 Resp 16 B/P (MAP) 190/86 185/93 (123) 162/80 (107) 201/81 (121) Pulse Ox 98 O2 Delivery Room Air 11/20/19 11/20/19 08:00 08:16 Pulse 78 B/P (MAP) 201/91 O2 Delivery Room Air Intake and Output 11/19/19 11/19/19 11/20/19 15:00 23:00 07:00 Intake Total 160 ml Balance 160 ml Images Brain MRI: The scalp and calvarium are normal. The superior sagittal sinus demonstrates normal venous flow. The corpus callosum is normal in shape and signal intensity. The posterior fossa is unremarkable. The pituitary and sella are normal. The brainstem and craniocervical junction are unremarkable. There are T2/FLAIR signal hyperintense foci in the periventricular and subcortical white matter most suggestive of mild chronic small vessel ischemic changes. Diffusion weighted images reveal no hyperintensities to suggest acute cerebral infarction. The susceptibility weighted sequences reveal no evidence of acute or chronic hemorrhage. The ventricles are normal in size and position without evidence of hydrocephalus. The paranasal sinuses are normal. Right mastoid effusion is noted. There may be fluid in the right middle The orbits appear normal exception of bilateral lens replacement. Normal flow voids are demonstrated in the carotid arteries and basilar artery. IMPRESSION: 1. No evidence for acute or subacute ischemia. 2. There are T2/FLAIR signal hyperintense foci in the periventricular and subcortical white matter most suggestive of mild chronic small vessel ischemic changes.. 3. Right mastoid effusion with fluid in the right middle ear cavity. Otomastoiditis is a consideration. Cervical MRI: There is minimal retrolisthesis of C4 on C5. Vertebral body heights are maintained. Mild low T1 signal intensity is identified throughout the cervical spine which is nonspecific and could be secondary to chronic smoking or anemia. There is mild disc height loss at C4-C5, C5-C6 and C6-C7. Moderate intramarginal osteophytosis is present. No significant prevertebral edema. Cervical spinal cord signal intensity is normal in all sequences. Posterior fossa is normal in appearance. Vertebral artery flow voids are maintained. Sella is normal. Skull base is intact. No significant abnormality of the atlantoaxial articulation. There is congenital narrowing of the spinal canal secondary to shortened pedicles. C2-C3: Mild disc bulge. No significant facet arthropathy or uncovertebral joint disease. No neuroforaminal or spinal canal stenosis. C3-C4: There is mild disc bulge. No significant facet arthropathy. No uncovertebral joint disease. Mild right neuroforaminal stenosis. No spinal canal stenosis. C4-C5: There is a posterior disc osteophyte complex with central disc extrusion. There is mild facet arthropathy and uncovertebral joint disease. Moderate to severe left and mild right neuroforaminal stenosis. Moderate to severe spinal canal stenosis without definite cord signal alteration. Findings are exacerbated by ligamentum flavum infolding and congenital narrowing of the spinal canal. C5-C6: There is a posterior disc osteophyte complex with right central disc extrusion. Mild facet and moderate right uncovertebral joint disease. Moderate right and mild left neuroforaminal stenosis. Moderate to severe spinal canal stenosis, exacerbated by ligamentum flavum infolding and congenital narrowing of the spinal canal. No definite cord signal alteration is visualized. C6-C7: There is a posterior disc osteophyte complex with left central disc protrusion. No significant facet arthropathy. Moderate left and mild right uncovertebral joint disease. Moderate left and mild right neuroforaminal stenosis. Mild to moderate spinal canal stenosis with mild deformity of the cord. No cord signal alteration. C7-T1: Disc is normal in configuration. No neuroforaminal or spinal canal stenosis. IMPRESSION: Moderate to advanced degenerative changes of the cervical spine are present, most prominent at C4-C5, C5-C6 and described in detail above. Justicifation of Admission Dx: Justifications for Admission: Justification of Admission Dx: N/A BISHNU HUTCHINSON MD Nov 20, 2019 10:21
--- NOTE | 2019-11-20 10:30 | PDOC ---
SUBJECTIVE ROS No new complaints, stable OBJECTIVE Vital Signs Vital Signs Date Time Temp Pulse Resp B/P (MAP) Pulse Ox O2 Delivery O2 Flow Rate FiO2 11/20/19 08:16 78 201/91 11/20/19 08:00 Room Air 11/20/19 07:00 98.1 16 98 98.1 I & 0 Intake and Output 11/20/19 07:00 Intake Total 160 ml Balance 160 ml Intake Oral 160 ml # Voids 2 # Bowel Movements 1 PHYSICAL EXAM Physical Exam GENERAL:NAD HEEN-OM moist NECK: Supple. CV: RRR LUNGS : Clear to auscultation, Non labored ABDOMEN: soft, peritoneal dialysis catheter in place- no tenderness NEURO- A XO No paz SKIN No Rash DIAGNOSIS/ASSESSMENT Assessment & Plan ESRD -On PD switched from HD earlier this year Does PD 5 days /week -not on Tue and Tuesday as recommended by Dr. Price No LBF , On cycler at night.Continue with Home prescription , Octavio Callahan HTN- has been hospitalized in past 2/2 HTNsive urgency BP high,has been switched to Sular from amlodipine by Dr. Price , also ion Clonidine, losartan , Hydralazine at home Renal Doppler in Apr 2019 - No evidence of renal artery stenosis DM-per primary Anemia-- Monitor, if below goal start ANGELO Generalized weakness of the right arm /Numbness CT and MRI cervical spine - Moderate to advanced degenerative changes of the cervical spine, C4-C5, C5-C6, cervical radiculopathy Neuro recommendations- Conservative therapy for the cervical disease, physical therapy as outpatient. Escalate to epidural injections in the neurosurgery if no better Possible right otomastoiditis- ENT follow up Hx of TIA- MRI brain- No stroke DC per primary COMMENT/RELEVANT DATA Meds Current Medications Medications (Trade) Dose Ordered Sig/Aniceto Start Time Stop Time Status Last Admin Dose Admin Amlodipine Besylate (Norvasc) 5 mg DAILY 11/18/19 10:00 11/20/19 03:05 5 MG Clonidine HCl (Catapres Tts-1) 1 patch WEEKLY 11/20/19 10:00 UNV Clonidine HCl (Catapres Tts-3) 1 patch WEEKLY 11/20/19 10:00 Hydralazine HCl (Apresoline) 100 mg TID 11/18/19 10:00 11/20/19 08:16 100 MG Insulin Glargine (Lantus Syringe) 8 unit QHS 11/18/19 21:00 11/19/19 20:53 8 UNIT Insulin Human Lispro (HumaLOG) 6 units TIDWMEALS 11/18/19 12:00 11/19/19 18:04 6 UNITS Insulin Human Regular (HumuLIN R VIAL) 6 unit TIDAC 11/18/19 11:30 Cancel Losartan Potassium (Cozaar) 100 mg QHS 11/18/19 21:00 11/19/19 20:52 100 MG Pentoxifylline (TRENtal) 400 mg TID 11/18/19 10:00 11/20/19 08:15 400 MG Timolol Maleate (Timoptic 0.5% Oph) 1 drop BID 11/18/19 10:00 11/20/19 08:16 1 DROP Vitamin B Complex/ Vitamin C (Di-Cash) 1 tab DAILY 11/18/19 10:00 11/20/19 08:16 1 TAB Lab Laboratory Tests Test 11/19/19 11:49 11/19/19 16:38 11/19/19 20:40 11/20/19 07:25 Glucose (Fingerstick) 123 mg/dL (70-99) 274 mg/dL (70-99) 173 mg/dL (70-99) 123 mg/dL (70-99) Results All relevant outside records, renal labs, imaging studies, telemetry/EKG's were reviewed. Justicifation of Admission Dx: Justifications for Admission: Justification of Admission Dx: N/A JAYLEEN LANDERS MD Nov 20, 2019 10:29
[2019-11-20 11:00] VITALS: BP 186/87
[2019-11-20] MEDS ORDERED: NISO34TA3 PO (11:17)
[2019-11-20] MEDS ORDERED: FAMO20TA5 PO (11:19)
[2019-11-20] MEDS ORDERED: SPIR50TA PO (11:19)
[2019-11-20] MEDS ORDERED: HYDR-2869 PO (11:19)
--- NOTE | 2019-11-20 11:58 | NUR ---
Pt discharged home with self care. Prescription for outpt therapy and abx discussed. Pt and verbalized understanding. IV removed. Pt assisted to wheelchair and was secured in car with
[2019-11-20] MEDS ORDERED: FAMOTIDINE 20 MG TABLET. PO SCH (12:00)
--- NOTE | 2019-11-20 12:00 | NUR ---
Called Dr. Viktoriya Mcgill office to cancel consult. The patient will follow up outpt
--- NOTE | 2019-11-20 12:13 | NUR ---
SW following. Discussed with RN, pt discharging home with outpatient therapy. RN advised no SW needs. Pt provided with script from RN.
--- NOTE | 2019-11-20 12:57 | DS ---
DATE OF DISCHARGE: 11/20/2019 HOSPITAL COURSE: The patient is resting, slightly propped up in bed, in no apparent distress, awake, alert. She continued to have some pain in her neck and right upper extremity; however, she has had CT scan of the cervical spine. She, in fact, has MRI of the cervical spine without contrast, which showed that the patient has moderately advanced degenerative changes at the cervical spine, most prominent at C4-C5, C5-C6 and she also had an MRI of the brain, which showed no evidence of acute or subacute ischemia. There are T2 flair signal, hyperintense foci in the periventricular and subcortical white matter, most suggestive of mild chronic small vessel ischemic changes, also right mastoid effusion with fluid in the right middle ear cavity and otomastoiditis consideration. She was seen in consultation by the neurologist as well as the lung puller. She was diagnosed with [id number] degenerative changes of cervical spine , particularly at C4-C5, C5-C6, cervical radiculopathy. There is no evidence of stroke, possible right otomastoiditis and history of transient ischemic attack. The neurologist recommended conservative therapy for cervical disease with physical therapy as an outpatient. It might eventually require epidural injection and neurosurgery if no improvement. An ENT surgeon was consulted regarding possible otomastoiditis. The patient was discharged home to follow with the neurologist, ENT surgeon and the lung puller. She was seen by Dr. Khan and again, she is stable on her peritoneal dialysis. PHYSICAL EXAMINATION: GENERAL: When I examined her today, she looked well and was clearly in no apparent respiratory distress, slightly pale, but no jaundice, cyanosis or thyromegaly. No jugular venous distention. No limb edema. VITAL SIGNS: Her heart rate was 79, blood pressure was 162/80, temperature was 98, respiratory rate was 16, and oxygen saturation was 98%. HEAD, EYES, EARS, NOSE AND THROAT: Normocephalic, atraumatic. NECK: Supple. HEART: Showed normal first and second heart sounds. No gallop or murmur. CHEST: Clear to auscultation. No crepitation or rhonchi. ABDOMEN: Distended, soft, nontender. NEUROLOGIC: She is definitely more awake, alert, responding appropriately. All her cranial nerves are intact. Moves extremities without difficulty. LABORATORY DATA: Her blood sugar has been well controlled. DISCHARGE MEDICATIONS: The patient was discharged home to continue on her home medication that included clonidine TTS 3 and clonidine TTS 1, Nephro-Cash 1 tablet once a day, furosemide 20 mg once a day, hydralazine 150 mg 3 times a day, hydrocodone/APAP 5/325 one tablet every 4 hours. She is on Lantus insulin 8 units at bedtime and insulin lispro 6 units before meals, losartan potassium 100 mg once a day. She is on Sular 30 mg once a day, Protonix 40 mg once a day, pentoxifylline 400 mg 3 times a day and timolol maleate 1 drop to both eyes twice a day. FINAL DISCHARGE DIAGNOSES: 1. [id number] degenerative disk disease of cervical spine with cervical radiculopathy. 2. Type 2 diabetes mellitus. 3. Hypertension. 4. Hyperlipidemia. 5. End-stage renal disease, on peritoneal dialysis. 6. Did have a history of transient ischemic attack and sarcoidosis. Dictation Ends Here LADONNA REZA MD DR: ROBERT/andrew JOB#: [id number] / [id number]
[2019-11-25] MEDS ORDERED: cloNIDine TTS-3 1 PATCH PATCH.TDWK TD SCH (09:00)
== END 2019-11-20 12:02 | disposition home or self-care (01) | DRG 551 ==
LOC: 4 NORTH 06:43
PROVIDERS: ADMIT Internal Medicine; ATTEND Internal Medicine
DX: M50.222 Other cervical disc displacement at C5-C6 level (principal); N18.6 End stage renal disease; I12.0 Hypertensive chronic kidney disease with stage 5 chronic kidney disease or end stage renal disease; I16.0 Hypertensive urgency; M50.122 Cervical disc disorder at C5-C6 level with radiculopathy; M50.123 Cervical disc disorder at C6-C7 level with radiculopathy; D86.9 Sarcoidosis, unspecified; E11.22 Type 2 diabetes mellitus with diabetic chronic kidney disease; E78.5 Hyperlipidemia, unspecified; H91.91 Unspecified hearing loss, right ear; M25.78 Osteophyte, vertebrae; M47.9 Spondylosis, unspecified; M48.02 Spinal stenosis, cervical region; T75.4XXA Electrocution, initial encounter; W86.8XXA Exposure to other electric current, initial encounter; Z82.49 Family history of ischemic heart disease and other diseases of the circulatory system; Z83.3 Family history of diabetes mellitus; Z86.73 Personal history of transient ischemic attack (TIA), and cerebral infarction without residual deficits; Z90.49 Acquired absence of other specified parts of digestive tract; Z98.41 Cataract extraction status, right eye; Z90.710 Acquired absence of both cervix and uterus; Z98.42 Cataract extraction status, left eye; Z99.2 Dependence on renal dialysis; K21.9 Gastro-esophageal reflux disease without esophagitis; D64.9 Anemia, unspecified
CPT/HCPCS: 70551; 72141; 82962; J1815; G0378; U0003-CS

== ENCOUNTER 2019-12-19 11:05 | Inpatient (IN) | payer MEDICARE, OTHER ==
[~2019-12-19] VITALS: Ht 160 cm; Wt 64.9 kg
[~2019-12-19 11:05] MED LIST changes: +HYDR-2869 PO; +NISO34TA3 PO; +SPIR50TA PO
[2019-12-19] MEDS ORDERED: DOCUSATE SODIUM 100 MG CAPSULE. PO PRN (11:45)
[2019-12-19] MEDS ORDERED: HYDROcodone/APAP 5/325MG 1 TAB TABLET PO PRN (11:45)
[2019-12-19] MEDS ORDERED: ALBUTEROL SULFATE 2.5 MG/3 ML NEBU. NEB PRN (11:45)
[2019-12-19] MEDS ORDERED: FAMOTIDINE 20 MG TABLET. PO PRN (11:45)
[2019-12-19] MEDS ORDERED: ONDANSETRON PF 4 MG/2 ML VIAL. IV PRN (11:45)
[2019-12-19] MEDS ORDERED: 0.9 % SODIUM CHLORIDE 10 ML DISP.SYRIN. IV PRN (11:45)
[2019-12-19] MEDS ORDERED: guaiFENesin ORAL 200 MG/10 ML LIQUID. PO PRN (11:45)
[2019-12-19] MEDS ORDERED: HYDR100T24 PO (11:58)
[2019-12-19] MEDS ORDERED: FURO-69 PO (11:58)
[2019-12-19] MEDS ORDERED: cloNIDine TTS-2 1 PATCH PATCH TD SCH (12:00)
[2019-12-19] MEDS: TIMOLOL 0.5% OPHTH SOLUTION 5ML BOTTLE. OU SCH ×3 (12:00→22:41)
[2019-12-19] MEDS ORDERED: amLODIPine BESYLATE 10 MG TABLET PO SCH (12:00)
[2019-12-19] MEDS ORDERED: FUROSEMIDE 20 MG TABLET PO SCH (12:00)
[2019-12-19] MEDS ORDERED: DEXTROSE 50% 25 GM / 50ML DISP.SYRIN. IV PRN (12:30)
[2019-12-19] MEDS: FUROSEMIDE 20 MG TABLET PO SCH (12:42)
[2019-12-19] MEDS: FOLIC/VIT B COMP W-C (RENAL) TABLET. PO SCH (12:42)
[2019-12-19] MEDS: SPIRONOLACTONE 25 MG TABLET PO SCH (12:44)
[2019-12-19] MEDS: ACETAMINOPHEN 325 MG TABLET. PO PRN (12:45)
--- NOTE | 2019-12-19 13:06 | PDOC2 ---
CONSULT Date of Consult Date of Consult DATE: 12/19/19 TIME: 12:58 Reason for Consult Reason for Consult: ESRD on PD Source Source: Chart review, Patient History of Present Illness Reason for Visit: Pt is a 79-year-old AAF ESRD on PD ,presented to [facility] ER with c/o complaint of chest pressure that awakened her from sleep. She stated her pain was substernal and left sided chest pressure, which she reported feeling like indigestion. She also felt that her heart was racing. She was transferred to [facility] for further eval. Denies any N/V . No abdominal pain . Denies F/C. No Cough or SOB. Has some RRF , recievived IVF and Lasix at [place] per RN . She didint take her BP meds this morning She does PD 5 times/week per Dr. Price's recommendations and No PD on Tue and Tuesday . Doesn't have a last fill . She is propped up in bed getting ready to eat lunch Past Medical History Cardiovascular: HTN, Hyperlipidemia Pulmonary: Other CENTRAL NERVOUS SYSTEM: CVA, TIA GI: GERD Heme/Onc: Anemia NOS Musculoskeletal: Osteoarthritis Renal/: Chronic renal failure Endocrine: Diabetes Past Surgical History Past Surgical History: Cholecystectomy, Cataract Removal, Hysterectomy, Other Family History Family History: Diabetes, Hypertension Social History ALCOHOL: none Drugs: None Lives: with Family Current Medications Current Medications Current Medications Sodium Chloride (Normal Saline Flush) 3 ml QSHIFT PRN IV AFTER MEDS AND BLOOD DRAWS; Start 12/19/19 at 11:45 Ondansetron HCl (Zofran) 4 mg PRN Q4HRS PRN IV NAUSEA/VOMITING; Start 12/19/19 at 11:45 Acetaminophen (Tylenol) 650 mg PRN Q4HRS PRN PO TEMP OVER 100.4F OR MILD PAIN Last administered on 12/19/19at 12:45; Start 12/19/19 at 11:45 Docusate Sodium (Colace) 100 mg PRN BID PRN PO HARD STOOLS; Start 12/19/19 at 11:45 Albuterol Sulfate (Ventolin Neb Soln) 2.5 mg PRN Q4HRS PRN NEB SHORTNESS OF BREATH; Start 12/19/19 at 11:45 Guaifenesin (Robitussin) 200 mg PRN Q4HRS PRN PO COUGH; Start 12/19/19 at 11:45 Clonidine HCl (Catapres Tts-2) 1 patch WEEKLY TD Last administered on 12/19/19at 12:48; Start 12/19/19 at 12:00 Famotidine (Pepcid) 20 mg PRN DAILY PRN PO HEARTBURN / GAS; Start 12/19/19 at 11:45 Vitamin B Complex/ Vitamin C (Di-Cash) 1 tab DAILY PO Last administered on 12/19/19at 12:42; Start 12/19/19 at 12:00 Furosemide (Lasix) 20 mg DAILY PO ; Start 12/19/19 at 12:00; Stop 12/19/19 at 12:11; Status DC Hydralazine HCl (Apresoline) 50 mg TID PO ; Start 12/19/19 at 14:00; Stop 12/19/19 at 12:06; Status DC Acetaminophen/ Hydrocodone Bitart (Lortab 5/325) 1 tab PRN Q4HRS PRN PO PAIN MODERATE; Start 12/19/19 at 11:45 Pentoxifylline (TRENtal) 400 mg TID PO ; Start 12/19/19 at 14:00; Status Cancel Losartan Potassium (Cozaar) 100 mg QHS PO ; Start 12/19/19 at 21:00 Amlodipine Besylate (Norvasc) 10 mg DAILY PO ; Start 12/19/19 at 12:00; Stop 12/19/19 at 12:06; Status DC Spironolactone (Aldactone) 100 mg DAILY PO Last administered on 12/19/19at 12:44; Start 12/19/19 at 12:00 Timolol Maleate (Timoptic 0.5% Ophth) 1 drop BID OU ; Start 12/19/19 at 12:00 Hydralazine HCl (Apresoline) 150 mg TID PO Last administered on 12/19/19at 12:43; Start 12/19/19 at 14:00 Furosemide (Lasix) 20 mg BID92 PO Last administered on 12/19/19at 12:42; Start 12/19/19 at 14:00 Insulin Human Lispro (HumaLOG) 0-9 UNITS TIDWMEALS SQ ; Start 12/19/19 at 17:00 Dextrose (Dextrose 50%-Water Syringe) 12.5 gm PRN Q15MIN PRN IV SEE COMMENTS; Start 12/19/19 at 12:30 Active Scripts Active Losartan Potassium 100 Mg Tablet 100 Mg PO AT BED TIME 30 Days Lantus Solostar (Insulin Glargine,Hum.rec.anlog) 100 Unit/1 Ml Insuln.pen 8 Unit SQ QHS 30 Days Humalog (Insulin Lispro) 100 Unit/1 Ml Vial 6 Unit SQ TIDAC 30 Days Hydralazine Hcl 100 Mg Tablet 1 Tab PO TID Hydrocodone-Apap 5-325 (Hydrocodone Bit/Acetaminophen) 1 Tab Tablet 1 Tab PO PRN Q4HRS PRN Reported Hydralazine Hcl 100 Mg Tablet 1.5 Tab PO TID Lasix (Furosemide) 20 Mg Tablet 20 Mg PO BID Aldactone (Spironolactone) 50 Mg Tablet 2 Tab PO DAILY Famotidine 20 Mg Tablet 20 Mg PO PRN PRN Sular (Nisoldipine) 34 Mg Tab.er.24h 34 Mg PO DAILY Clonidine Tts-2 (Clonidine) 1 Each Patch.tdwk 1 Patch TD WEEKLY Timolol Maleate 5 Ml Drop.daily 1 Drop EACHEYE BID PRN 30 Days Nephro-Cash Tablet (Folic Acid/Vitamin B Comp W-C) 0.8 Mg Tablet 1 Tab PO DAILY Allergies Allergies: Coded Allergies: No Known Drug Allergies (Unverified , 03/29/19) ROS Review of System As per HPI, rest ROS is negative Physical Exam Physical Exam GENERAL:NAD HEEN-OM moist , on RA NECK: Supple. CV: S1S2 LUNGS : Clear to auscultation, Non labored ABDOMEN: soft, peritoneal dialysis catheter in place- no tenderness NEURO- A XO , grossly normal No paz SKIN No Rash Ext No LE edema Vital Signs Vital Signs Date Time Temp Pulse Resp B/P (MAP) Pulse Ox O2 Delivery O2 Flow Rate FiO2 12/19/19 12:43 186/87 Assessment & Plan ESRD -On PD switched from HD early 2019 Does PD 5 days /week -not dialysis on Tue and Tuesday as recommended by Dr. Price No Last Fill , On cycler at night.Continue with Home prescription , No Dialysis tonight HTN- has been hospitalized in past 2/2 HTNsive urgency BP high -resume home meds , card managing Renal Doppler in Apr 2019 - No evidence of renal artery stenosis DM-per primary Anemia-- Monitor, if below goal will start ANGELO Chest pain . Palpitations- per cardiology Labs Review All relevant outside records, renal labs, imaging studies, telemetry/EKG's were reviewed. JAYLEEN LANDERS MD Dec 19, 2019 13:06
[2019-12-19] MEDS ORDERED: LORazepam 0.5 MG TABLET PO PRN (13:15)
--- NOTE | 2019-12-19 13:22 | PDOC2 ---
JARON AMBROSIO PRINTED CIRCUIT LAYOUT TAPER 12/19/19 1322: CARDIAC CONSULT DATE OF CONSULT Date of Consult DATE: 12/19/19 TIME: 13:13 REASON FOR CONSULT Reason for Consult: Chest pain REFERRING PHYSICIAN Referring Physician: Fullbright SOURCE Source: Chart review, Patient HISTORY OF PRESENT ILLNESS HISTORY OF PRESENT ILLNESS This is a pleasant 79 yo female admitted for complains of chest pain and high BP. Reports that last night she had some palpitations and spouse noted regular HR at 120s. She was able to go to bed and sleep but woke up again around 3 AM with the same sensation. Reports also chest discomfort pointing out as pressure. With the help of her they have been checking her BP and it has been intermittently high despite her being compliant with her medications. She takes losartan, sular and high dose hydralazine. She also does PD regularly and noting her dry wt is about 140 lbs. She has been having PEREZ and feels fatigue. She has been tired more and sleeps more than usual during the day. She is due for stress test on Tuesday. She also had an MCOT which has been mailed back and the data results are still pending. She has been transferred here for further treatment and testing. Denies any n/v/d and no fever or chills. She did have some antibiotics about a month ago but this was for ear infection. No PND or orthopnea. PAST MEDICAL HISTORY Cardiovascular: CHF, HTN Pulmonary: No pertinent hx CENTRAL NERVOUS SYSTEM: Other (No pertinent history) GI: No pertinent hx Heme/Onc: No pertinent hx Hepatobiliary: No pertinent hx Psych: No pertinent hx Musculoskeletal: Osteoarthritis Rheumatologic: No pertinent hx Infectious disease: No pertinent hx ENT: Other (retinopathy; otitis media) Renal/: Chronic renal failure (PD) Endocrine: Diabetes (2) Dermatology: No pertinent hx PAST SURGICAL HISTORY Past Surgical History: Arthroscopy (RTC repair), Cholecystectomy, Hysterectomy, Other (PD cath placement) FAMILY HISTORY Family History: Coronary Artery Disease (mother) SOCIAL HISTORY Smoke: No ALCOHOL: none Drugs: None Lives: with Family CURRENT MEDICATIONS CURRENT MEDICATIONS Current Medications Medications (Trade) Dose Ordered Sig/Aniceto Route PRN Reason Start Time Stop Time Status Last Admin Dose Admin Acetaminophen (Tylenol) 650 mg PRN Q4HRS PRN PO TEMP OVER 100.4F OR MILD PAIN 12/19/19 11:45 12/19/19 12:45 Clonidine HCl (Catapres Tts-2) 1 patch WEEKLY TD 12/19/19 12:00 12/19/19 12:48 Vitamin B Complex/ Vitamin C (Di-Cash) 1 tab DAILY PO 12/19/19 12:00 12/19/19 12:42 Spironolactone (Aldactone) 100 mg DAILY PO 12/19/19 12:00 12/19/19 12:44 Hydralazine HCl (Apresoline) 150 mg TID PO 12/19/19 14:00 12/19/19 12:43 Furosemide (Lasix) 20 mg BID92 PO 12/19/19 14:00 12/19/19 12:42 ALLERGIES ALLERGIES: Coded Allergies: No Known Drug Allergies (Unverified , 03/29/19) ROS Review of System 14 point ROS evlauated with pertinent positives noted per HPI PHYSICAL EXAM General: Alert, Oriented X3, Cooperative, No acute distress HEENT: Atraumatic, Mucous membr. moist/pink Lungs: Clear to auscultation, Normal air movement Heart: Regular rate (SR), Normal S1, Normal S2, Other (2/6 systolic murmur to LLS border; S4) Extremities: No cyanosis, No edema Skin: No breakdown, No significant lesion Neuro: Normal speech, Sensation intact Psych/Mental Status: Mental status NL, Mood NL MUSCULOSKELETAL: Osteoarthritic changes both hands VITALS/I&O VITALS/I&O: Vital Signs Date Time Temp Pulse Resp B/P (MAP) Pulse Ox O2 Delivery O2 Flow Rate FiO2 12/19/19 12:43 186/87 ECHOCARDIOGRAM ECHOCARDIOGRAM <Conclusion> The left ventricular systolic function is normal. The Ejection Fraction is 60-65%. There is normal LV segmental wall motion. Mild mitral regurgitation. Trace tricuspid regurgitation with an estimated PAP of 41 mmHg. There is no evidence of significant pericardial effusion. DATE: 05/03/19 1410 ASSESSMENT/PLAN ASSESSMENT/PLAN 1. Chest pain 2. Palpitations 3. HTN urgency despite compliance 4. Possible MADDIE 5. DM2 6. ESRD: on PD 7. Fatigue: potentially med related Recommendations 1. Restart home BP meds(clinidine patch, hydralazine, losartan). May use norvasc as guevaraar is not in hospital formulary. Trend BP and troponin. Check EKG. Labetolol IV PRN 2. If trops are normal then will obtain MPI tomorrow. 3. PD per nephrology 4. recent MCOT, results pending 5. ASA, lipid panel LINA GABRIEL MD 12/19/192023: CARDIAC CONSULT ASSESSMENT/PLAN ASSESSMENT/PLAN Patient seen and examined. Agree with HARDWARE SALES ASSISTANT's assessment and plan, CP with very atypical features. KS ruled out. Plan MPI to rule out ischemic etiology She is presently in SR - we will follow up on recent MCOT results to rule out any significant arrhythmias Restart home anti hypertensives and titrate for enzo control Continue PD for ESRD per nephrology team Thank you for your consultation JARON AMBROSIO APRN Dec 19, 2019 13:22 LINA GABRIEL MD Dec 19, 2019 20:24
[2019-12-19] MEDS ORDERED: PENTOXIFYLLINE ER 400 MG TABLET.ER. PO SCH (14:00)
[2019-12-19] MEDS ORDERED: cloNIDine TTS-2 1 PATCH PATCH TD ONE (14:30)
[2019-12-19 15:00] VITALS: BP 196/88
[2019-12-19 15:10] LABS: CALCIUM 8.7 mg/dL (8.5-10.1); CREATININE 6.3 mg/dL (0.6-1.0); GFR 7.8; POTASSIUM 4.3 mmol/L (3.5-5.1)
--- NOTE | 2019-12-19 15:55 | EKG ---
[facility] [address] [place] [address] Test Date: 2019-12-19 Test Time: 15:43:57 Pat Name: BILL HICKS Department: Room: 260 1 Gender: F Custom Bow Maker: : 1940 Requested By: JARON AMBROSIO Order Number: [id number] Reading MD: Measurements Intervals [place] Rate: 76 P: 61 WA: 188 QRS: 12 QRSD: 74 T: 85 QT: 390 QTc: 443 Interpretive Statements SINUS RHYTHM T ABNORMALITY IN HIGH LATERAL LEADS ABNORMAL ECG RI6.02 No previous ECG available for comparison
--- NOTE | 2019-12-19 16:14 | HP ---
ADMIT DATE: 12/19/2019 HISTORY OF PRESENT ILLNESS: The patient is a 79-year-old -Ivor[place] female patient who apparently was seen at the Emergency Room of [facility] with complaint of chest pressure that started this morning that awakened her from sleep. She stated her pain was substernal and left sided chest pressure, which she reported feeling like indigestion. She also felt that her heart was racing. Nothing makes her symptoms better or worse. Denied any shortness of breath. Denied any nausea, vomiting or diaphoresis. She is on peritoneal dialysis and do nightly dialysis on Tuesday to Tuesday and apparently she has 2 days off. She apparently has unremarkable 14-day monitor and she was supposed to have a stress test this coming Tuesday. She apparently has had a stress test which was normal. She has also cardiac catheterization, which was unremarkable, but that was years ago and therefore, she was transferred to [facility] to consult the Cardiology and Nephrology. When I saw her, she continued to complain of chest pressure and she is very anxious about her high blood pressure and apparently she has not had her blood pressure medication this morning. The nurse has just given all her medications. She was evaluated in the Emergency Room and her first set of cardiac enzymes showed troponin to be less than 0.017. Her chemistry otherwise was unremarkable except in particular her potassium was only 4. PAST MEDICAL HISTORY: Significant for longstanding type 2 diabetes mellitus with multiple complications, hypertension, hyperlipidemia, end-stage renal disease on peritoneal dialysis. She has also transient ischemic attack, and sarcoidosis. PAST SURGICAL HISTORY: Significant for bilateral cataract extraction. She has also senile macular degeneration, has had cholecystectomy, right shoulder rotator cuff repair and left middle finger fracture, status post open reduction and internal fixation. She also had total abdominal hysterectomy, bilateral salpingo-oophorectomy. ALLERGIES: She has no known drug allergies. FAMILY HISTORY: She has 2 brothers and 1 sister, all younger and . Her older brother of hypertension and end-stage renal disease. Her sister of what seems to be status epilepticus and her baby brother at age of 22 because of obscure cancer. Her mother at age of 25 and father at age of 23, both have sarcoidosis. SOCIAL HISTORY: She is , has 7 daughters and 3 sons. She does not smoke, drink alcohol or use any recreational drugs. REVIEW OF SYSTEMS: As per history of present illness. MEDICATIONS: She is currently on following medications: She is on pentoxifylline 400 mg 3 times a day, carvedilol 25 mg twice a day, losartan 100 mg once a day, timolol maleate 1 drop to both eyes twice a day, famotidine 20 mg twice a day, Protonix 40 mg once a day, NovoLog insulin before meals and Lantus insulin 30 units at bedtime, folic acid, vitamin B complex 1 tablet once a day. PHYSICAL EXAMINATION: GENERAL: On arrival to the Emergency Room, she looked well and was clearly in no apparent respiratory distress and pale, but no jaundice, cyanosis or thyromegaly. No jugular venous distention. No limb edema. VITAL SIGNS: Her heart rate was 86, blood pressure 159/84, temperature was 98.1, respiratory rate was 18, and oxygen saturation 100%. HEAD, EYES, EARS, NOSE AND THROAT: Normocephalic, atraumatic. NECK: Supple. CARDIAC: Normal first and second heart sounds. No gallop or murmur. CHEST: Clear to auscultation. No crepitation or rhonchi. ABDOMEN: Scaphoid, soft, nontender. NEUROLOGIC: She is awake, alert, very anxious, but otherwise grossly intact. LABORATORY DATA: Showed a white cell count 7900, hemoglobin 11, hematocrit 33, MCV 91, and platelet count 382,000. Her chemistry showed a serum sodium 139, potassium 4, chloride 103, bicarbonate 24, anion gap 12, BUN 37, creatinine 6.1, estimated GFR was 8 mL per minute. Her glucose was 159, calcium was 9.1, phosphorus 3.2, magnesium was 1.8. Total bilirubin, AST, ALT, alkaline phosphatase were normal. Beta natriuretic peptide was 2814, total protein was 8.1, albumin was 2.6, globulin was not detectable and lipase was 88. ASSESSMENT AND PLAN: In summary, this is a 79-year-old female patient with multiple medical problems and risk factors for coronary artery disease, who was awakened by chest pain that felt across the chest. Her first set of cardiac enzyme was normal. We will do 2 more sets of cardiac enzyme. We will check her fasting lipid profile tomorrow. I have consulted the chairman and ceo as well as the box toe stitcher. I have reconciled all her medications. LADONNA REZA MD DR: ROBERT/andrew JOB#: [id number] / [id number]
[2019-12-19] MEDS: INSULIN LISPRO 300 UNITS/3 ML VIAL. SQ SCH (17:00)
[2019-12-19 19:00] VITALS: BP 192/96
[2019-12-19] MEDS: LOSARTAN POTASSIUM 50 MG TABLET. PO SCH (21:26)
[2019-12-19] MEDS: TEMAZEPAM 15 MG CAPSULE PO PRN (21:27)
[2019-12-19] MEDS: LABETALOL 20 MG/4 ML DISP.SYRIN. IVP PRN (22:42)
[2019-12-19 23:00] VITALS: BP 191/92
[2019-12-20] VITALS (7 sets, daily range): BP systolic 136–199; BP diastolic 64–90
[2019-12-20] MEDS: LABETALOL 20 MG/4 ML DISP.SYRIN. IVP PRN ×2 (02:56→05:28)
[2019-12-20 06:18] LABS: CHOLESTEROL/HDL RATIO 2.4
[2019-12-20] MEDS: INSULIN LISPRO 300 UNITS/3 ML VIAL. SQ SCH ×3 (08:00→17:34)
[2019-12-20] MEDS: ASPIRIN ENTERIC COATED 81 MG TABLET.DR. PO SCH (08:35)
[2019-12-20] MEDS: FOLIC/VIT B COMP W-C (RENAL) TABLET. PO SCH (08:35)
[2019-12-20] MEDS: TIMOLOL 0.5% OPHTH SOLUTION 5ML BOTTLE. OU SCH (08:37)
[2019-12-20] MEDS ORDERED: amLODIPine BESYLATE 10 MG TABLET PO ONE (09:00)
[2019-12-20] MEDS: amLODIPine BESYLATE 10 MG TABLET PO SCH (09:00)
[2019-12-20] MEDS: FUROSEMIDE 20 MG TABLET PO SCH ×2 (10:39→13:54)
[2019-12-20] MEDS: SPIRONOLACTONE 25 MG TABLET PO SCH (10:39)
[2019-12-20] MEDS: ISOSORBIDE MONONITRATE ER 30 MG TAB.ER.24H PO SCH (10:40)
--- NOTE | 2019-12-20 11:23 | PDOC ---
DATE OF SERVICE DATE: 12/20/19 TIME: 11:21 SUBJECTIVE ROS Denies CP or SOB. States feeling well this am OBJECTIVE Vital Signs Vital Signs Date Time Temp Pulse Resp B/P (MAP) Pulse Ox O2 Delivery O2 Flow Rate FiO2 12/20/19 11:00 97.7 77 18 193/90 (124) 97 Room Air 97.7 I & 0 Intake and Output 12/20/19 07:00 Intake Total 740 ml Output Total 650 ml Balance 90 ml Intake Oral 740 ml Output Urine Total 650 ml PHYSICAL EXAM Physical Exam GENERAL:NAD HEEN-OM moist , on RA NECK: Supple. CV: S1S2 LUNGS : Clear to auscultation, Non labored ABDOMEN: soft, peritoneal dialysis catheter in place- no tenderness NEURO- A XO , grossly normal No paz SKIN No Rash Ext No LE edema DIAGNOSIS/ASSESSMENT Assessment & Plan ESRD -On PD switched from HD early 2019 Does PD 5 days /week -no dialysis on Tue and Tuesday as recommended by Dr. Price No Last Fill , On cycler at night.Continue with Home prescription this evening HTN- has been hospitalized in past 2/2 HTNsive urgency BP high -resumed home meds , Isosorbide added per cardiology Renal Doppler in Apr 2019 - No evidence of renal artery stenosis DM-per primary Anemia-- Monitor, if below goal will start ANGELO Chest pain . Palpitations- per cardiology COMMENT/RELEVANT DATA Meds Current Medications Medications (Trade) Dose Ordered Sig/Aniceto Start Time Stop Time Status Last Admin Dose Admin Acetaminophen (Tylenol) 650 mg PRN Q4HRS PRN 12/19/19 11:45 12/19/19 12:45 650 MG Acetaminophen/ Hydrocodone Bitart (Lortab 5/325) 1 tab PRN Q4HRS PRN 12/19/19 11:45 12/19/19 21:26 1 TAB Albuterol Sulfate (Ventolin Neb Soln) 2.5 mg PRN Q4HRS PRN 12/19/19 11:45 Amlodipine Besylate (Norvasc) 10 mg 1X ONCE 12/20/19 09:00 12/20/19 09:01 DC Aspirin (Ecotrin) 81 mg DAILYWBKFT 12/20/19 08:00 12/20/19 08:35 81 MG Clonidine HCl (Catapres Tts-2) 1 patch 1X ONCE 12/19/19 14:30 12/19/19 14:31 DC 12/19/19 15:06 1 PATCH Dextrose (Dextrose 50%-Water Syringe) 12.5 gm PRN Q15MIN PRN 12/19/19 12:30 Docusate Sodium (Colace) 100 mg PRN BID PRN 12/19/19 11:45 Famotidine (Pepcid) 20 mg PRN DAILY PRN 12/19/19 11:45 Furosemide (Lasix) 20 mg BID92 12/19/19 14:00 12/20/19 10:39 20 MG Guaifenesin (Robitussin) 200 mg PRN Q4HRS PRN 12/19/19 11:45 Hydralazine HCl (Apresoline) 150 mg TID 12/19/19 14:00 12/20/19 08:36 150 MG Insulin Human Lispro (HumaLOG) 0-9 UNITS TIDWMEALS 12/19/19 17:00 Isosorbide Mononitrate (Imdur) 60 mg DAILY 12/20/19 11:00 12/20/19 10:40 60 MG Labetalol HCl (Normodyne Iv Push) 20 mg PRN Q2HR PRN 12/19/19 14:45 12/20/19 05:28 20 MG Lorazepam (Ativan) 0.5 mg PRN Q8HRS PRN 12/19/19 13:15 12/19/19 22:42 0.5 MG Losartan Potassium (Cozaar) 100 mg QHS 12/19/19 21:00 12/19/19 21:26 100 MG Ondansetron HCl (Zofran) 4 mg PRN Q4HRS PRN 12/19/19 11:45 Pentoxifylline (TRENtal) 400 mg TID 12/19/19 14:00 Cancel Sodium Chloride (Normal Saline Flush) 3 ml QSHIFT PRN 12/19/19 11:45 Spironolactone (Aldactone) 100 mg DAILY 12/19/19 12:00 12/20/19 10:39 100 MG Temazepam (Restoril) 15 mg PRN QHS PRN 12/19/19 21:15 12/19/19 21:27 15 MG Timolol Maleate (Timoptic 0.5% [facility]) 1 drop BID 12/19/19 12:00 12/20/19 08:37 1 DROP Vitamin B Complex/ Vitamin C (Di-Csah) 1 tab DAILY 12/19/19 12:00 12/20/19 08:35 1 TAB Lab Laboratory Tests Test 12/19/19 12:08 12/19/19 14:00 12/19/19 17:33 12/19/19 18:18 Glucose (Fingerstick) 164 mg/dL (70-99) 145 mg/dL (70-99) Sodium Level 138 mmol/L (136-145) Potassium Level 4.3 mmol/L (3.5-5.1) Chloride Level 103 mmol/L (98-107) Carbon Dioxide Level 26 mmol/L (21-32) Anion Gap 9 (6-14) Blood Urea Nitrogen 36 mg/dL (7-20) Creatinine 6.3 mg/dL (0.6-1.0) Estimated GFR (Cockcroft-Gault) 7.8 Glucose Level 189 mg/dL (70-99) Calcium Level 8.7 mg/dL (8.5-10.1) Troponin I Quantitative < 0.017 ng/mL (0.000-0.055) < 0.017 ng/mL (0.000-0.055) Test 12/20/19 05:20 12/20/19 08:17 Triglycerides Level 83 mg/dL (0-150) Cholesterol Level 181 mg/dL (0-200) LDL Cholesterol, Calculated 90 mg/dL (0-100) VLDL Cholesterol, Calculated 17 mg/dL (0-40) Non-HDL Cholesterol Calculated 107 mg/dL (0-129) HDL Cholesterol 74 mg/dL (40-60) Cholesterol/HDL Ratio 2.4 Glucose (Fingerstick) 137 mg/dL (70-99) Results All relevant outside records, renal labs, imaging studies, telemetry/EKG's were reviewed. Justicifation of Admission Dx: Justifications for Admission: Justification of Admission Dx: N/A JAYLEEN LANDERS MD Dec 20, 2019 11:23
--- NOTE | 2019-12-20 12:10 | PN ---
DATE: SUBJECTIVE: The patient is resting, slightly propped up in bed, in no apparent respiratory distress. She denied any chest pain or shortness of breath; however, she is scheduled for stress test today; however, her blood pressure continued to be extremely high despite being on multiple antihypertensive medications. She is now on amlodipine, losartan, labetalol, and clonidine patch daily. She was seen by the customer services supervisor and who added Imdur 60 mg once a day. PHYSICAL EXAMINATION: GENERAL: When I examined her this morning, she looked well and was clearly in no apparent respiratory distress, pale, but no jaundice, cyanosis or thyromegaly. No jugular venous distention. No limb edema. VITAL SIGNS: Her heart rate was 88, blood pressure was 199/70, temperature 97.9, respiratory rate was 18 and oxygen saturation was 98%. The rest of clinical exam is stable. Her intake and output are incompletely recorded. LABORATORY DATA: As of yesterday showed a serum sodium 138, potassium 4.3, chloride 103, bicarbonate 26, anion gap of 9, BUN 36, creatinine 6.3, estimated GFR was 7.8 mL per minute. Her glucose was 189. Her blood sugar this morning was 137. Her serum triglycerides were 83, total cholesterol 181, LDL was 90, VLDL was 17, HDL was 74 and cholesterol to HDL cholesterol ratio was only 2.4. She did have 3 sets of cardiac enzymes that ruled out acute myocardial infarction. ASSESSMENT: 1. Chest pain, atypical, acute myocardial infarction ruled out. 2. Accelerated hypertension. 3. Longstanding type 2 diabetes mellitus with multiple complications. 4. Hyperlipidemia. 5. End-stage renal disease, on peritoneal dialysis. 6. Transient ischemic attack. 7. Sarcoidosis. PLAN: To control her blood pressure such that she undergo the stress test tomorrow to decide on further management. LADONNA REZA MD DR: ROBERT/andrew JOB#: [id number] / [id number]
[2019-12-20] MEDS ORDERED: INSU100I13 SQ (12:40)
--- NOTE | 2019-12-20 13:24 | NUR ---
SS following for discharge planning. SS reviewed pt chart and discussed with pt RN. Pt is from home with spouse and is currently on room air. Pt has stress test scheduled for tomorrow. SS will continue to follow for discharge planning.
--- NOTE | 2019-12-20 13:26 | PDOC ---
JARON AMBROSIO SENIOR RESEARCH MANAGER 12/20/19 1326: CARDIO Progress Notes Date and Time Date of Service 12/20/2019 Time of Evaluation 0840 Subjective Subjective: No Chest Pain, No shortness of breath, No Palpitations Vitals Vitals Vital Signs Date Time Temp Pulse Resp B/P (MAP) Pulse Ox O2 Delivery O2 Flow Rate FiO2 12/20/19 11:00 97.7 77 18 193/90 (124) 97 Room Air 97.7 Weight Weight [ ] Input and Output Intake and Output Intake and Output 12/20/19 07:00 Intake Total 740 ml Output Total 650 ml Balance 90 ml Intake Oral 740 ml Output Urine Total 650 ml Laboratory Labs Laboratory Tests Test 12/19/19 14:00 12/19/19 17:33 12/19/19 18:18 12/20/19 05:20 Sodium Level 138 mmol/L (136-145) Potassium Level 4.3 mmol/L (3.5-5.1) Chloride Level 103 mmol/L (98-107) Carbon Dioxide Level 26 mmol/L (21-32) Anion Gap 9 (6-14) Blood Urea Nitrogen 36 mg/dL (7-20) Creatinine 6.3 mg/dL (0.6-1.0) Estimated GFR (Cockcroft-Gault) 7.8 Glucose Level 189 mg/dL (70-99) Calcium Level 8.7 mg/dL (8.5-10.1) Troponin I Quantitative < 0.017 ng/mL (0.000-0.055) < 0.017 ng/mL (0.000-0.055) Glucose (Fingerstick) 145 mg/dL (70-99) Triglycerides Level 83 mg/dL (0-150) Cholesterol Level 181 mg/dL (0-200) LDL Cholesterol, Calculated 90 mg/dL (0-100) VLDL Cholesterol, Calculated 17 mg/dL (0-40) Non-HDL Cholesterol Calculated 107 mg/dL (0-129) HDL Cholesterol 74 mg/dL (40-60) Cholesterol/HDL Ratio 2.4 Test 12/20/19 08:17 12/20/19 12:32 Glucose (Fingerstick) 137 mg/dL (70-99) 195 mg/dL (70-99) Physical Exam HEENT: Neck Supple W Full Motion Chest: Symmetric LUNGS: Clear to Auscultation Heart: S1S2, RRR (SR) Abdomen: Soft N/T Extremities: No Edema, No Calf Tenderness Neurology: alert, oriented, follow commands Assessment Assessment 1. Chest pain: possibly from high BP, trops nml 2. Palpitations: no arrhythmias so far 3. HTN urgency despite compliance 4. Possible MADDIE 5. DM2 6. ESRD: on PD 7. Fatigue: potentially med related Recommendations 1. Continue current BP regimen. Sular not in formulary so sub norvasc. Start on imdur and if BP remains uncontrolled then will start on labetolol PO. Will try to avoid increasing clonidine due to increasing daytime somnolence 2. Will optimize BP control then plan for MPI tomorrow. 3. PD per nephrology 4. recent MCOT, results pending 5. ASA 6. Consider outpt MADDIE workup. Justicifation of Admission Dx: Justifications for Admission: Justification of Admission Dx: N/A LINA GABRIEL MD 12/20/19 1725: CARDIO Progress Notes Assessment Assessment Patient seen and examined. Agree with SENIOR PAYROLL ADMINISTRATOR's assessment and plan, CP with very atypical features. IA ruled out. Agree with Norvasc and Imdur for better blood pressure control We will consider labetalol if blood pressures continues to be high Recent renal arterial duplex scan did not show any significant renal artery stenosis Lexiscan MPI postponed for tomorrow secondary to uncontrolled hypertension JARON AMBROSIO APRN Dec 20, 2019 13:26 LINA GABRIEL MD Dec 20, 2019 17:25
[2019-12-20] MEDS: LABETALOL HCL 200 MG TABLET PO SCH ×2 (13:56→21:29)
[2019-12-20] MEDS ORDERED: INSULIN GLARGINE SYRINGE. SQ SCH (21:00)
[2019-12-20] MEDS: LOSARTAN POTASSIUM 50 MG TABLET. PO SCH (21:29)
[2019-12-20] MEDS: TEMAZEPAM 15 MG CAPSULE PO PRN (21:39)
[2019-12-20] MEDS: ACETAMINOPHEN 325 MG TABLET. PO PRN (23:58)
[2019-12-21 02:55] VITALS: BP 144/55
[2019-12-21 05:42] LABS: GFR 6.9; POTASSIUM 3.7 mmol/L (3.5-5.1)
[2019-12-21 07:00] VITALS: BP 167/78
[2019-12-21] MEDS: INSULIN LISPRO 300 UNITS/3 ML VIAL. SQ SCH ×2 (08:00→12:00)
[2019-12-21] MEDS: amLODIPine BESYLATE 10 MG TABLET PO SCH (08:20)
[2019-12-21] MEDS: ASPIRIN ENTERIC COATED 81 MG TABLET.DR. PO SCH (08:20)
[2019-12-21] MEDS: ISOSORBIDE MONONITRATE ER 30 MG TAB.ER.24H PO SCH (08:21)
[2019-12-21] MEDS: TIMOLOL 0.5% OPHTH SOLUTION 5ML BOTTLE. OU SCH (08:22)
[2019-12-21] MEDS ORDERED: REGADENOSON 0.4 MG/5 ML DISP.SYRIN. IV ONE (08:45)
[2019-12-21] MEDS: FUROSEMIDE 20 MG TABLET PO SCH ×2 (09:00→13:01)
[2019-12-21] MEDS: ACETAMINOPHEN 325 MG TABLET. PO PRN (10:33)
[2019-12-21 10:37] VITALS: BP 140/65
--- NOTE | 2019-12-21 12:02 | PDOC ---
JARON AMBROSIO MEDICAL BILLING COORDINATOR 12/21/19 1202: CARDIO Progress Notes Date and Time Date of Service 12/21/2019 Time of Evaluation 1105 Subjective Subjective: No Chest Pain, No shortness of breath, No Palpitations, Other (having some throbbing LOPEZ post MPI) Vitals Vitals Vital Signs Date Time Temp Pulse Resp B/P (MAP) Pulse Ox O2 Delivery O2 Flow Rate FiO2 12/21/19 10:37 96.9 89 12 140/65 (90) 96 Room Air 96.9 Weight Weight [ ] Input and Output Intake and Output Intake and Output 12/21/19 07:00 Intake Total 650 ml Balance 650 ml Intake Oral 650 ml Laboratory Labs Laboratory Tests Test 12/20/19 12:32 12/20/19 17:13 12/20/19 20:35 12/20/19 23:28 Glucose (Fingerstick) 195 mg/dL (70-99) 181 mg/dL (70-99) 203 mg/dL (70-99) 282 mg/dL (70-99) Test 12/21/19 04:30 12/21/19 08:13 Sodium Level 136 mmol/L (136-145) Potassium Level 3.7 mmol/L (3.5-5.1) Chloride Level 103 mmol/L (98-107) Carbon Dioxide Level 27 mmol/L (21-32) Anion Gap 6 (6-14) Blood Urea Nitrogen 40 mg/dL (7-20) Creatinine 7.0 mg/dL (0.6-1.0) Estimated GFR (Cockcroft-Gault) 6.9 Glucose Level 228 mg/dL (70-99) Calcium Level 8.0 mg/dL (8.5-10.1) Glucose (Fingerstick) 136 mg/dL (70-99) Physical Exam HEENT: Neck Supple W Full Motion Chest: Symmetric LUNGS: Clear to Auscultation Heart: S1S2, RRR (SR) Abdomen: Soft N/T Extremities: No Edema, No Calf Tenderness Neurology: alert, oriented, follow commands Assessment Assessment 1. Chest pain: possibly from high BP, trops nml 2. Palpitations: no arrhythmias so far 3. HTN urgency: better 4. Possible MADDIE 5. DM2 6. ESRD: on PD 7. Fatigue: potentially med related Recommendations 1. Continue current BP regimen with addition of imdur and labetolol. Avoid increasing clonidine due to increasing daytime somnolence and may need to lower dose and uptitrate others 2. MPI pending today 3. PD per nephrology 4. recent MCOT, results pending 5. ASA 6. Consider outpt MADDIE workup. Justicifation of Admission Dx: Justifications for Admission: Justification of Admission Dx: N/A LINA GABRIEL MD 12/21/19 1545: CARDIO Progress Notes Assessment Assessment Patient seen and examined. Agree with CVIR TECH's assessment and plan, CP with very atypical features. [place] ruled out. Blood pressure better controlled. Recent renal arterial duplex scan did not show any significant renal artery stenosis. Lexiscan nuclear stress test did not show any significant ischemia. Continue dialysis per nephrology team. JARON AMBROSIO APRN Dec 21, 2019 12:02 LINA GABRIEL MD Dec 21, 2019 15:45
[2019-12-21] MEDS: FOLIC/VIT B COMP W-C (RENAL) TABLET. PO SCH (12:55)
[2019-12-21] MEDS: SPIRONOLACTONE 25 MG TABLET PO SCH (12:56)
[2019-12-21] MEDS: LABETALOL HCL 200 MG TABLET PO SCH (13:00)
--- NOTE | 2019-12-21 13:02 | NUR ---
SS following up with discharge planning. Pt is currently on room air. Pt has peritoneal dialysis at home. Pt having stress test today. Possible discharge to home if medically cleared. SS will continue to follow for discharge planning.
--- NOTE | 2019-12-21 14:01 | PDOC ---
DATE OF SERVICE DATE: 12/21/19 TIME: 13:58 SUBJECTIVE ROS c/o headache since the stress test No issues with PD OBJECTIVE Vital Signs Vital Signs Date Time Temp Pulse Resp B/P (MAP) Pulse Ox O2 Delivery O2 Flow Rate FiO2 12/21/19 13:00 82 149/66 12/21/19 10:37 96.9 12 96 Room Air 96.9 I & 0 Intake and Output 12/21/19 07:00 Intake Total 650 ml Balance 650 ml Intake Oral 650 ml PHYSICAL EXAM Physical Exam GENERAL:NAD HEEN-OM moist , on RA NECK: Supple. CV: S1S2 LUNGS : Clear to auscultation, Non labored ABDOMEN: soft, peritoneal dialysis catheter in place- no tenderness NEURO- A XO , grossly normal No paz SKIN No Rash Ext No LE edema DIAGNOSIS/ASSESSMENT Assessment & Plan ESRD -On PD switched from HD early 2019 Does PD 5 days /week -not dialysis on Tue and Tuesday per Dr. Price No Last Fill , On cycler at night.Continue with Home prescription HTN- has been hospitalized in past 2/2 HTNsive urgency BP high -resumed home meds , card managing , Isosorbide started yesterday Renal Doppler in Apr 2019 - No evidence of renal artery stenosis DM-per primary Anemia-- Monitor, if below goal will start ANGELO Chest pain . Palpitations- per cardiology Stress test done this morning COMMENT/RELEVANT DATA Meds Current Medications Medications (Trade) Dose Ordered Sig/Aniceto Start Time Stop Time Status Last Admin Dose Admin Acetaminophen (Tylenol) 650 mg PRN Q4HRS PRN 12/19/19 11:45 12/21/19 10:33 650 MG Acetaminophen/ Hydrocodone Bitart (Lortab 5/325) 1 tab PRN Q4HRS PRN 12/19/19 11:45 12/19/19 21:26 1 TAB Albuterol Sulfate (Ventolin Neb Soln) 2.5 mg PRN Q4HRS PRN 12/19/19 11:45 Amlodipine Besylate (Norvasc) 10 mg 1X ONCE 12/20/19 09:00 12/20/19 09:01 DC Aspirin (Ecotrin) 81 mg DAILYWBKFT 12/20/19 08:00 12/21/19 08:20 81 MG Clonidine HCl (Catapres Tts-2) 1 patch 1X ONCE 12/19/19 14:30 12/19/19 14:31 DC 12/19/19 15:06 1 PATCH Dextrose (Dextrose 50%-Water Syringe) 12.5 gm PRN Q15MIN PRN 12/19/19 12:30 Docusate Sodium (Colace) 100 mg PRN BID PRN 12/19/19 11:45 Famotidine (Pepcid) 20 mg PRN DAILY PRN 12/19/19 11:45 Furosemide (Lasix) 20 mg BID92 12/19/19 14:00 12/21/19 13:01 20 MG Guaifenesin (Robitussin) 200 mg PRN Q4HRS PRN 12/19/19 11:45 Hydralazine HCl (Apresoline) 150 mg TID 12/19/19 14:00 12/21/19 08:21 150 MG Insulin Glargine (Lantus Syringe) 30 unit QHS 12/20/19 21:00 12/20/19 21:31 30 UNIT Insulin Human Lispro (HumaLOG) 0-9 UNITS TIDWMEALS 12/19/19 17:00 12/20/19 17:34 4 UNITS Isosorbide Mononitrate (Imdur) 60 mg DAILY 12/20/19 11:00 12/21/19 08:21 60 MG Labetalol HCl (Normodyne Iv Push) 20 mg PRN Q2HR PRN 12/19/19 14:45 12/20/19 05:28 20 MG Labetalol HCl (Trandate) 200 mg BID 12/20/19 14:00 12/21/19 13:00 200 MG Lorazepam (Ativan) 0.5 mg PRN Q8HRS PRN 12/19/19 13:15 12/19/19 22:42 0.5 MG Losartan Potassium (Cozaar) 100 mg QHS 12/19/19 21:00 12/20/19 21:29 100 MG Ondansetron HCl (Zofran) 4 mg PRN Q4HRS PRN 12/19/19 11:45 12/21/19 10:18 4 MG Pentoxifylline (TRENtal) 400 mg TID 12/19/19 14:00 Cancel Regadenoson (Lexiscan) 0.4 mg 1X ONCE 12/21/19 08:45 12/21/19 08:46 DC 12/21/19 09:40 0.4 MG Sodium Chloride (Normal Saline Flush) 3 ml QSHIFT PRN 12/19/19 11:45 Spironolactone (Aldactone) 100 mg DAILY 12/19/19 12:00 12/21/19 12:56 100 MG Temazepam (Restoril) 15 mg PRN QHS PRN 12/19/19 21:15 12/20/19 21:39 15 MG Timolol Maleate (Timoptic 0.5% Ophth) 1 drop BID 12/19/19 12:00 12/21/19 08:22 1 DROP Vitamin B Complex/ Vitamin C (Di-Cash) 1 tab DAILY 12/19/19 12:00 12/21/19 12:55 1 TAB Lab Laboratory Tests Test 12/20/19 17:13 12/20/19 20:35 12/20/19 23:28 12/21/19 04:30 Glucose (Fingerstick) 181 mg/dL (70-99) 203 mg/dL (70-99) 282 mg/dL (70-99) Sodium Level 136 mmol/L (136-145) Potassium Level 3.7 mmol/L (3.5-5.1) Chloride Level 103 mmol/L (98-107) Carbon Dioxide Level 27 mmol/L (21-32) Anion Gap 6 (6-14) Blood Urea Nitrogen 40 mg/dL (7-20) Creatinine 7.0 mg/dL (0.6-1.0) Estimated GFR (Cockcroft-Gault) 6.9 Glucose Level 228 mg/dL (70-99) Calcium Level 8.0 mg/dL (8.5-10.1) Test 12/21/19 08:13 12/21/19 12:07 Glucose (Fingerstick) 136 mg/dL (70-99) 146 mg/dL (70-99) Results All relevant outside records, renal labs, imaging studies, telemetry/EKG's were reviewed. Justicifation of Admission Dx: Justifications for Admission: Justification of Admission Dx: N/A JAYLEEN LANDERS MD Dec 21, 2019 14:01
--- NOTE | 2019-12-21 14:08 | RAD ---
MR#: [id number] Date of Study: 12/21/2019 Ordering Physician: JARON AMBROSIO, Referring Physician: MAKSIM TORRES Tech: RT Alcira Woo) (N) APPROVED REPORT Test Type: Pharmacological Stress Nurse/Tech: Margaret Prescott RN Test Indications: chest pain Cardiac History: Hypertension, Diabetes,kidney disease Medications: See Electronic Medical Record Medical History: See Electronic Medical Record Resting ECG: SR with BBB Resting Heart Rate: 77 bpm Resting Blood Pressure: 162/75mmHg Pretest Chest Pain: No chest pain Nurse/Tech Notes S1,S2 and lungs slightly diminished in the bases. Consent: The procedure was explained to the patient in lay terms. Informed consent was witnessed. Clint eout was entered into [employer]. History and Stress Test performed by RT Alcira Woo) (N) Pharm. Details Pharmacologic stress testing was performed using 0.4mg per 5ml of regadenoson given intravenously ove r 7-10 seconds. Stress Symptoms Dyspnea,Dizziness,feels weird POST EXERCISE Reason for Termination: Infusion complete Target HR: No Max HR: 108 bpm 89% of Maximum Predicted HR: 121 bpm Max Blood Pressure: 147/64mmHg Blood Pressure response to exercise: Normal blood pressure response during stress. Heart Rate response to exercise: WNL Chest Pain: No. Arrhythmia: No. ST Change: No. INTERPRETATION Stress EKG Conclusion: Baseline EKG showed sinus rhythm. No ischemic changes at peak stress. No arr hythmias. Imaging Protocol IMAGE PROTOCOL: Rest Tc-99m/stress Tc-99m 1 day Rest: Stress: Viability: Radiopharm.Tc99m EhyatwnzkHu27s Sestamibi Dose10.5mCi 32.3mCi Duration 15min. 10min. Img Date 12/21/2019 12/21/2019 Inj-Img Ttlp16yhm. 60min. Rest Admin Site:IV - Right AntecubitalAdministrator:RT Alcira Woo)(N) Stress Admin Site: IV - Right AntecubitalAdministrator: RT Amna (Choco)(N) STRESS DATA End Diast. Vol.88.0mlAv. Heart Rate84.0bpm End Syst. Vol.15.0mlCO Index BSA0.0L/min Myocardial Bbtk969.0gEject. Kajttvqs98.0% Stress Rates Pk. Fill Rate3.69EDV/secLVtime Pk. Fill 183.19msec Pk. Empty Rate4.72ESV/secLVtime Pk. Ccqjj799.26msec 1/3 Pk. Fill1.48EDV/sec Stress Scores Regional WT1.00Summed WT5.00 Regional WM0.00Summed WM1.00 Study quality was fair. Left Ventricular size was Normal at Rest and Stress. Lung uptake was . Left Ventricular ejection fraction is 76%. The rest and stress images show normal perfusion, normal contraction and thickening. LV Perf. Quant 17 Seg. SSS1.00 17 Seg. SRS1.00 17 Seg. SDS0.00 Stress Defect Extent (% LAD)0.00Rest Defect Extent (% LAD)0.00Rev. Defect Extent (% LAD)0.00 Stress Defect Extent (% LCX) 0.00Rest Defect Extent (% LCX)5.00Rev. Defect Extent (% LCX)0.00 Stress Defect Extent (% RCA)0.00Rest Defect Extent (% RCA)0.00Rev. Defect Extent (% RCA)0.00 Stress Defect Extent (% ALEC)0.00Rest Defect Extent (% ALEC)0.90Rev. Defect Extent (% ALEC)0.00 Conclusion 1. Regadenoson cardioisotope stress test did not show any evidence of ischemia or infarct. 2. Normal left ventricular systolic function with ejection fraction calculated at 76%. 3. Low risk for cardiac events. Signed by : Yong Mcfarlane, Electronically Approved : 12/21/2019 14:08:26
[2019-12-21 15:00] VITALS: BP_SYST 112; BP_SYST 119; BP_DIAS 56; BP_DIAS 69
[2019-12-21] MEDS ORDERED: LABE200T4 PO (16:29)
[2019-12-21] MEDS ORDERED: ISOS60TA2 PO (16:29)
--- NOTE | 2019-12-21 16:51 | NUR ---
Discharge Note: BILL HICKS Discharge instructions and discharge home medications reviewed with Patient and a copy given. All questions have been answered and understanding verbalized. The following instructions and handouts were given: chest pain, lorazapam, lebatalol, and isosorbide. Discontinued lines and drains: peripheral IV discontinued. Patient discharged to home via wheelchair accompanied by spouse.
--- NOTE | 2019-12-21 18:38 | DS ---
DATE OF DISCHARGE: 12/21/2019 HOSPITAL COURSE: The patient is a 79-year-old -[place] female patient who was admitted with chest pain. She was initially seen at the Emergency Room at [facility] with chest pain that started the morning of admission that has awakened her from sleep. She stated that her pain was substernal and left-sided, described as pressure, which she reportedly feeling like indigestion. She has felt that her heart was racing. Nothing makes her symptoms better or worse. Denied any shortness of breath. Denied any nausea, vomiting or diaphoresis. She is on peritoneal dialysis and do nightly dialysis on Tuesday to Tuesday and apparently has 2 days off. She apparently has unremarkable 14-day heart monitor and she was supposed to have stress test. She has had before a stress test as well as cardiac catheterization, which were both unremarkable few years ago. Given the new symptoms, she was transferred to [facility] to consult Cardiology and Nephrology. Unfortunately, she had 2 sets of cardiac enzymes that were negative and acute myocardial infarction was ruled out; however, she has had hypertensive urgency with blood pressure that has been extremely high that required addition of isosorbide mononitrate as well as labetalol. Eventually, her blood pressure was much better controlled and she underwent a stress test, which basically did not show any evidence of ischemia or infarct. She has normal left ventricular systolic function, ejection fraction calculated at 76%, which is read as a low risk for cardiac event. Her blood pressure is much better controlled, in fact, when I saw her this afternoon, her systolic pressure was 119/56, after we added labetalol and isosorbide mononitrate and she remained hemodynamically stable and myocardial infarction ruled out. A decision was made to discharge her home to follow with her primary care physician as well as protective signal installer. PHYSICAL EXAMINATION: GENERAL: When I examined her this afternoon, she was sitting on the edge of the bed comfortably in no apparent distress, pale, no jaundice, cyanosis or thyromegaly. No jugular venous distention. No limb edema. VITAL SIGNS: Her heart rate was 74, blood pressure was 119/56, temperature was 97.9, respiratory rate was 18 and oxygen saturation was 96%. HEAD, EYES, EARS, NOSE AND THROAT: Showed normocephalic, atraumatic. NECK: Supple. HEART: Showed normal first and second heart sounds with no gallop, rub or murmur. CHEST: Clear to auscultation. No crepitation or rhonchi. ABDOMEN: Distended, soft, nontender with a peritoneal dialysis catheter in place. NEUROLOGIC: She is awake, alert, responding appropriately. All cranial nerves intact. EXTREMITIES: She moves extremities without difficulty. She ambulates without assistance or assistive devices. LABORATORY DATA: As of this morning, her serum sodium was 136, potassium was 3.7, chloride 103, bicarbonate 27, anion gap of 6, BUN 40, creatinine 7, estimated GFR was 6.9 mL per minute. Her glucose was 228, calcium was 8. DISCHARGE MEDICATIONS: She was discharged home to continue on clonidine TTS 2 patches weekly, furosemide 20 mg twice a day, hydralazine 150 mg twice a day, losartan potassium 100 mg once a day, nisoldipine (Sular) 34 mg once a day, spironolactone 100 mg once a day, timolol maleate 1 drop to both eyes as needed. She was also discharged on isosorbide mononitrate 60 mg once a day as well as labetalol 200 mg twice a day. FINAL DISCHARGE DIAGNOSES: 1. Chest pain, atypical, acute myocardial infarction was ruled out. 2. Hypertensive urgency, resolved. 3. End-stage renal disease, on peritoneal dialysis, 5 days per week, using a night cycler. 4. Other medical problems include; A. Hyperlipidemia. B. Type 2 diabetes mellitus for which she is on Lantus. C. Glaucoma. D. Transient ischemic attack. E. Sarcoidosis. F. Anxiety. LADONNA REZA MD DR: ROBERT/andrew JOB#: [id number] / [id number]
== END 2019-12-21 16:51 | disposition home or self-care (01) | DRG 391 ==
LOC: 2 SOUTH 11:05
PROVIDERS: ADMIT Internal Medicine; ATTEND Internal Medicine
DX: K21.9 Gastro-esophageal reflux disease without esophagitis (principal); N18.6 End stage renal disease; I13.2 Hypertensive heart and chronic kidney disease with heart failure and with stage 5 chronic kidney disease, or end stage renal disease; I16.0 Hypertensive urgency; D86.9 Sarcoidosis, unspecified; E11.22 Type 2 diabetes mellitus with diabetic chronic kidney disease; E11.319 Type 2 diabetes mellitus with unspecified diabetic retinopathy without macular edema; E78.5 Hyperlipidemia, unspecified; F41.9 Anxiety disorder, unspecified; H40.9 Unspecified glaucoma; H66.90 Otitis media, unspecified, unspecified ear; I50.9 Heart failure, unspecified; Z82.49 Family history of ischemic heart disease and other diseases of the circulatory system; Z83.3 Family history of diabetes mellitus; Z86.73 Personal history of transient ischemic attack (TIA), and cerebral infarction without residual deficits; Z90.49 Acquired absence of other specified parts of digestive tract; Z90.710 Acquired absence of both cervix and uterus; Z98.41 Cataract extraction status, right eye; Z98.42 Cataract extraction status, left eye; Z99.2 Dependence on renal dialysis; M19.90 Unspecified osteoarthritis, unspecified site; D64.9 Anemia, unspecified
CPT/HCPCS: 36415; 78452; 80048; 80061; 82962; 84484; 93005; 93017; 94760; A9500; J1815; J2405; J2785; J3490; G0378

== ENCOUNTER → 2020-07-16 | Outpatient (CLI) | payer MEDICARE, OTHER ==
[2019-12-21 15:00] VITALS: BP 119/56
[~2020-07-16] MED LIST changes: +FURO-69 PO; +ISOS60TA55 PO
--- NOTE | 2020-07-16 13:18 | CARD ---
MR#: [id number] Date of Study: 07/16/2020 Ordering Physician: LINA GABRIEL, Referring Physician: LINA GABRIEL, Tech: Pooja Quinn RDCS APPROVED REPORT EXAM: Two-dimensional and M-mode echocardiogram with Doppler and color Doppler. Other Information Quality : Good INDICATION Hypertension/HCVD Kidney Dialysis 2D DIMENSIONS RVDd2.6 (2.9-3.5cm)Left Atrium(2D)2.7 (1.6-4.0cm) IVSd1.0 (0.7-1.1cm)Aortic Root(2D)2.6 (2.0-3.7cm) LVDd3.8 (3.9-5.9cm)LVOT Diameter2.0 (1.8-2.4cm) PWd1.0 (0.7-1.1cm)LVDs2.3 (2.5-4.0cm) FS (%) 30.0 %SV42.8 ml LVEF(%)60.0 (>50%) Aortic Valve AoV Peak Emigdio.169.9cm/sAoV VTI38.2cm AO Peak GR.11.5mmHgLVOT Peak Emigdio.123.9cm/s LVOT VTI 30.15cmAO Mean GR.6mmHg ENRIQUE (VMAX)2.08yh6IKF (VTI)2.39cm2 Mitral Valve MV E Gwmsnmfu66.3cm/sMV DECEL KJCJ448ms MV A Bxxdmtai108.1cm/sMV XSJ24an E/A Ratio0.6MVA (PHT)3.50cm2 TDI E/Lateral E'13.5E/Medial E'17.3 Tricuspid Valve TR P. Ljfkpnyz510fp/sRAP TXQASRWL6dqUm TR Peak Gr.70feJdNUIQ52wuPg Pulmonary Vein S1 Ffludyay32.7cm/sD2 Ovmscbob31.5cm/s LEFT VENTRICLE The left ventricle is normal size. There is normal left ventricular wall thickness. The left ventricu lar systolic function is normal. The Ejection Fraction is 60-65%. There is normal LV segmental wall m otion. Transmitral Doppler flow pattern is Grade I-abnormal relaxation pattern. RIGHT VENTRICLE The right ventricle is normal size. The right ventricular systolic function is normal. ATRIA The left atrium size is normal. The right atrium size is normal. The interatrial septum is intact wit h no evidence for an atrial septal defect or patent foramen ovale as noted on 2-D or Doppler imaging. AORTIC VALVE The aortic valve is calcified but opens well. Doppler and Color Flow revealed trace aortic regurgitat ion. There is no significant aortic valvular stenosis. MITRAL VALVE The mitral valve is calcified but opens well. There is no evidence of mitral valve prolapse. There is no mitral valve stenosis. Doppler and Color-flow revealed mild mitral regurgitation. TRICUSPID VALVE The tricuspid valve is normal in structure and function. Doppler and Color Flow revealed trace tricus pid regurgitation. The PA pressure was estimated at 32 mmHg. There is no tricuspid valve stenosis. PULMONIC VALVE The pulmonic valve is not well visualized. Doppler and Color Flow revealed no pulmonic valvular regur gitation. There is no pulmonic valvular stenosis. GREAT VESSELS The aortic root is normal in size. The ascending aorta is not well seen. The IVC is normal in size an d collapses >50% with inspiration. PERICARDIAL EFFUSION There is no evidence of significant pericardial effusion. Critical Notification Critical Value: No <Conclusion> The left ventricular systolic function is normal. The Ejection Fraction is 60-65%. There is normal LV segmental wall motion. Transmitral Doppler flow pattern is Grade I-abnormal relaxation pattern. Mild mitral regurgitation. Trace tricuspid regurgitation. The PA pressure was estimated at 32 mmHg. There is no evidence of significant pericardial effusion. Signed by : Lina Gabriel, Electronically Approved : 07/16/2020 13:18:12
== END ==
LOC: ECHO 10:02
PROVIDERS: ATTEND Internal Medicine Cardiovascular Disease
DX: I08.0 Rheumatic disorders of both mitral and aortic valves (principal); I10 Essential (primary) hypertension
CPT/HCPCS: 93306

== ENCOUNTER → 2020-09-05 | Day surgery (SDC) | payer MEDICARE, OTHER ==
[~2020-09-05] MED LIST changes: +IV NORMAL SALINE 1000ML BAG 1,000 ML IV ONE; +IV RINGERS,LACTATED 1000ML 1,000 ML IV ONE; +PROPOFOL 10 MG/ML (20ML) VIAL. IV ONE
[2020-09-05 10:51] VITALS: BP 163/86
--- NOTE | 2020-09-09 12:07 | PATHOLOGY ---
[facility] Accession Number: [id number] . 01 Material submitted: . PART A: colon - ASCENDING COLON POLYP. Modifiers: ascending PART B: cecum - CECAL POLYP . 01 Clinical history: . ANEMIA COLONOSCOPY . 02 Diagnosis: A. Large bowel "ascending colon polyp", biopsy: - Tubular adenoma; negative for high-grade dysplasia or malignancy. . B. Large bowel "cecal polyp", biopsy: - Tubular adenoma; negative for high-grade dysplasia or malignancy. . (MARIBETH:krunal; 09/08/2020) MBChoco 09/09/2020 1156 Local . 02 Electronically signed: . Burak Burrell MD, Pathologist NPI- [id number] . 01 Gross description: . A. The specimen is received in formalin, labeled "Narda Linnea, ascending colon polyp". Received is a segment of pale caba tissue measuring 0.5 cm in maximum dimensions. The specimen is submitted entirely in cassette A1. . B. The specimen is received in formalin, labeled "Narda Linnea, cecal polyp". Received is a segment of pale caba tissue measuring 0.4 cm in maximum dimensions. The specimen is submitted entirely in cassette B1. (CAA; 09/07/2020) QAC/QAC 09/07/2020 1533 Local . 02 Pathologist provided ICD-10: D12.2, D12.0 . 02 CPT . 168434, 135120 Specimen Comment: A courtesy copy of this report has been sent to [phone], [phone] Specimen Comment: [id number] Specimen Comment: Report sent to / DR CAMPA Performed at: 01 [facility] [address] [id number] MD Antwan Luong MD Phone: [phone] Performed at: [address] [id number] MD Luis Pierson MD Phone: [phone]
== END | disposition home or self-care (01) ==
LOC: SURG 08:05
PROVIDERS: ATTEND Internal Medicine Gastroenterology
DX: D50.9 Iron deficiency anemia, unspecified (principal); K64.0 First degree hemorrhoids; K57.30 Diverticulosis of large intestine without perforation or abscess without bleeding; K63.89 Other specified diseases of intestine; D12.2 Benign neoplasm of ascending colon; D12.0 Benign neoplasm of cecum; K21.9 Gastro-esophageal reflux disease without esophagitis; M19.90 Unspecified osteoarthritis, unspecified site; I12.0 Hypertensive chronic kidney disease with stage 5 chronic kidney disease or end stage renal disease; N18.6 End stage renal disease; E11.22 Type 2 diabetes mellitus with diabetic chronic kidney disease; F41.9 Anxiety disorder, unspecified; Z86.73 Personal history of transient ischemic attack (TIA), and cerebral infarction without residual deficits; Z99.2 Dependence on renal dialysis; Z90.49 Acquired absence of other specified parts of digestive tract; Z90.710 Acquired absence of both cervix and uterus; Z98.890 Other specified postprocedural states; Z79.899 Other long term (current) drug therapy; Z82.49 Family history of ischemic heart disease and other diseases of the circulatory system; Z83.3 Family history of diabetes mellitus; Z20.822 Contact with and (suspected) exposure to COVID-19
CPT/HCPCS: 45385; 87426; J2704; 88305

== ENCOUNTER → 2021-07-22 | Outpatient (CLI) | payer MEDICARE, OTHER ==
[2020-09-05 10:51] VITALS: BP 163/86
[~2021-07-22] MED LIST changes: -IV NORMAL SALINE 1000ML BAG 1,000 ML IV ONE; -IV RINGERS,LACTATED 1000ML 1,000 ML IV ONE; -PROPOFOL 10 MG/ML (20ML) VIAL. IV ONE
--- NOTE | 2021-07-23 10:16 | CARD ---
MR#: [id number] Date of Study: 07/22/2021 Ordering Physician: LINA GABRIEL, Referring Physician: LINA GABRIEL Tech: Roberta Orourke [facility] APPROVED REPORT EXAM: Two-dimensional and M-mode echocardiogram with Doppler and color Doppler. Other Information Quality : AverageHR: 66bpm Rhythm : NSR INDICATION RISK FACTORS Hypertension Diabetes 2D DIMENSIONS RVDd2.5 (2.9-3.5cm)Left Atrium(2D)3.3 (1.6-4.0cm) IVSd1.3 (0.7-1.1cm)Aortic Root(2D)2.6 (2.0-3.7cm) LVDd3.5 (3.9-5.9cm)LVOT Diameter2.0 (1.8-2.4cm) PWd1.3 (0.7-1.1cm)LVDs1.5 (2.5-4.0cm) FS (%) 57.9 %SV45.3 ml LVEF(%)88.6 (>50%) Aortic Valve AoV Peak Emigdio.142.3cm/sAoV VTI34.9cm AO Peak GR.8.1mmHgLVOT Peak Emigdio.103.0cm/s AO Mean GR.4mmHgAVA (VMAX)2.35cm2 Mitral Valve MV E Axsgbqpn973.7cm/sMV DECEL [id number] MV A Wklifwsw591.3cm/sE/A Ratio0.8 Pulmonary Valve PV Peak Lclwwzry593.0cm/s Tricuspid Valve TR P. Pmttcnqj685yf/sTR Peak Gr.22mmHg LEFT VENTRICLE The left ventricle is normal size. There is mild to moderate concentric left ventricular hypertrophy. The left ventricular systolic function is normal and the ejection fraction is within normal range. E stimated ejection fraction 60-65%. There is normal LV segmental wall motion. Transmitral Doppler flow pattern is Grade I-abnormal relaxation pattern. RIGHT VENTRICLE The right ventricle is normal size. There is normal right ventricular wall thickness. The right ventr icular systolic function is normal. ATRIA The left atrium size is normal. The right atrium size is normal. The interatrial septum is intact wit h no evidence for an atrial septal defect or patent foramen ovale as noted on 2-D or Doppler imaging. AORTIC VALVE The aortic valve is normal in structure and function. Doppler and Color Flow revealed no significant aortic regurgitation. There is no significant aortic valvular stenosis. MITRAL VALVE The mitral valve is normal in structure and function. There is no evidence of mitral valve prolapse. There is no mitral valve stenosis. Doppler and Color-flow revealed mild mitral regurgitation. TRICUSPID VALVE The tricuspid valve is normal in structure and function. Doppler and Color Flow revealed trace tricus pid regurgitation. Estimated PAP 25-27 mmHg. There is no tricuspid valve stenosis. PULMONIC VALVE Doppler and Color Flow revealed no pulmonic valvular regurgitation. There is no pulmonic valvular abrahan nosis. GREAT VESSELS The aortic root is normal in size. The ascending aorta is normal in size. The IVC is normal in size a nd collapses >50% with inspiration. PERICARDIAL EFFUSION There is no evidence of significant pericardial effusion. Critical Notification Critical Value: No <Conclusion> The left ventricular systolic function is normal and the ejection fraction is within normal range. E stimated ejection fraction 60-65%. There is normal LV segmental wall motion. There is mild to moderate concentric left ventricular hypertrophy. Signed by : Kennedy Song, Electronically Approved : 07/23/2021 10:16:38
== END ==
LOC: ECHO 08:09
PROVIDERS: ATTEND Internal Medicine Cardiovascular Disease
DX: I34.0 Nonrheumatic mitral (valve) insufficiency (principal); I51.7 Cardiomegaly; N18.6 End stage renal disease
CPT/HCPCS: 93306; C8929